=== PATIENT | female | born 1965 | race Caucasian/White ===

== ENCOUNTER 2021-12-14 13:10 | Emergency (ER) | payer BC, SELFPAY ==
[2021-12-14 13:15] VITALS: BP 147/85; PULSE 84; RESP 16; TEMP 36.8; O2SAT 99; BMI 37.4
--- NOTE | 2021-12-14 14:50 | CRLHL7_ITS ---
For Patients: As a result of the Cures Act, medical imaging exams and procedure reports are released immediately into your electronic medical record. You may view this report before your referring provider. If you have questions, please contact your health care provider. Indication: Shoulder injury. Technique: Left shoulder 3 views. Comparison: None. Findings: Bones: Alignment is normal. No fractures or bone lesions. Joint spaces: Unremarkable. Soft tissues: Unremarkable. Impression: No sign of acute injury. Dictated by Elvin Fountain MD @ 12/14/2021 4:11:20 PM (Electronically Signed)
--- NOTE | 2021-12-14 14:51 | CRLHL7_ITS ---
For Patients: As a result of the Cures Act, medical imaging exams and procedure reports are released immediately into your electronic medical record. You may view this report before your referring provider. If you have questions, please contact your health care provider. Indication: Injury. Technique: Right thumb 3 views. Comparison: None. Findings: Bones: Alignment is normal. No fractures or bone lesions. Joint spaces: Mild arthritic changes. Soft tissues: Unremarkable. Impression: No sign of acute injury. Dictated by Elvin Fountain MD @ 12/14/2021 4:12:54 PM (Electronically Signed)
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
[2021-12-14 15:18] VITALS: BP 137/82; PULSE 77; RESP 20
--- OUTSIDE RECORDS SUMMARY | 2021-12-18 13:16 | XMS_ITS | Clinical Summary ---
:1965 Author Organization [facility] Address [address] [place] [address] Care Team Providers Name Role Phone Unavailable Primary Care Provider Unavailable Source Comments Patient records contain information from all sites at [facility]. For routine questions regarding patient records, call [phone] during business hours, M-F 8:00 AM - 5:00 PM Central Time. Record requests for emergency care only can be directed to [phone] at any time.[facility] Allergies Active Allergy Reactions Severity Noted Date Comments Hydrocodone-Acetaminophen Hives, Itching 08/28/2014 Medications Medication Sig Dispensed Refills Start Date End Date Status hydroCHLOROthiazide 0 08/29/2017 Active (HYDRODIURIL) 25 mg tablet EPINEPHrine 0.1 mg/0.1 mL by Injection 0 Active auto-injector route. acetaminophen (TYLENOL) Take 500 mg by 0 Active 500 mg capsule mouth. ibuprofen (ADVIL,MOTRIN) Take 200 mg by 0 Active 200 mg tablet mouth. losartan (COZAAR) 25 mg Take 25 mg by 0 Active tablet mouth daily. hydroCHLOROthiazide Take 12.5 mg by 0 06/10/2021 Active (HYDRODIURIL) 12.5 mg mouth daily. tablet Encounters Date Type Specialty Care Team Description 10/21/2021 Procedure visit Dermatology Amarilys Romero M.D. Nev us Atypical from Last 3 Months Family History Medical History Relation Name Comments Squamous cell carcinoma Maternal Grandmother Relation Name Status Comments Maternal Grandmother Social History Tobacco Use Types Packs/Day Years Used Date Smoking Tobacco: Former Smokeless Tobacco: Never Alcohol Habits Answer Date Recorded How often do you have a drink containing alcohol? 2-4 times a month 05/30/2021 How many drinks containing alcohol do you have on a 1 or 2 05/30/2021 typical day when you are drinking? How often do you have six or more drinks on one Less than mo nthly 05/30/2021 occasion? Social Isolation Answer Date Recorded In a typical week, how many times do you More than three anika es a week 05/30/2021 talk on the phone with family, friends, or neighbors? How often do you get together with friends Twice a week 05/30/2021 or relatives? How often do you attend yazidism or More than 4 times per year 05/30/2021 christian services? Do you belong to any clubs or Yes 05/30/2021 organizations such as yazidism groups, unions, fraternal or athletic groups, or school groups? How often do you attend meetings of the More than 4 times pe r year 05/30/2021 clubs or organizations you belong to? Are you now , , , 05/30/2021 , never or living with a partner? Physical Activity Answer Date Recorded On average, how many days per week do you engage in moderate to 6 days 05/30/2021 strenuous exercise (like walking fast, running, jogging, dancing, swimming, biking, or other activities that cause a light or heavy sweat)? On average, how many minutes do you engage in exercise at th is 60 min 05/30/2021 level? Stress Answer Date Recorded Do you feel stress - tense, restless, nervous, or anxious, N ot at all 05/30/2021 or unable to sleep at night because your mind is troubled all the time - these days? Financial Resource Strain Answer Date Recorded How hard is it for you to pay for the very basics like Not h yudelka at all 05/30/2021 food, housing, medical care, and heating? Intimate Partner Violence Answer Date Recorded Within the last year, have you been afraid of your partner o r No 05/30/2021 ex-partner? Within the last year, have you been humiliated or emotionall y No 05/30/2021 abused in other ways by your partner or ex-partner? Within the last year, have you been kicked, hit, slapped, or No 05/30/2021 otherwise physically hurt by your partner or ex-partner? Within the last year, have you been raped or forced to have any No 05/30/2021 kind of sexual activity by your partner or ex-partner? Food Insecurity Answer Date Recorded Within the past 12 months, you worried that your food would Never true 05/30/2021 run out before you got money to buy more. Within the past 12 months, the food you bought just didn't N ever true 05/30/2021 last and you didn't have money to get more. Transportation Needs Answer Date Recorded In the past 12 months, has lack of transportation kept you f rom No 05/30/2021 medical appointments or from getting medications? In the past 12 months, has lack of transportation kept you f rom No 05/30/2021 meetings, work, or getting things needed for daily living? Housing Stability Answer Date Recorded In the last 12 months, was there a time when you were not ab le No 05/30/2021 to pay the mortgage or rent on time? In the last 12 months, how many places have you lived? 1 05/30/2021 In the last 12 months, was there a time when you did not hav e a No 05/30/[address] or slept in a correction (including now)? Education Answer Date Recorded What is the highest level of school you have Some college, n o degree 03/14/2019 completed or the highest degree you have received? Sex Assigned at Date Recorded Female 05/30/2021 11:58 AM CDT Last Filed Vital Signs Vital Sign Reading Time Taken Comments Blood Pressure 148/97 10/21/2021 1:57 PM CDT Pulse 77 10/21/2021 1:57 PM CDT Temperature - - Respiratory Rate - - Oxygen Saturation - - Inhaled Oxygen Concentration - - Weight - - Height - - Body Mass Index - - Plan of Treatment Health Maintenance Due Date Last Done Comments CT Colonography 1965 Cologuard 1965 Colonoscopy 1965 Colorectal Cancer Screening 1965 Creatinine Level 1965 FIT 1965 Fasting Glucose for 1965 Diabetes Screening HIV Screening 1965 Hepatitis B Vaccines (1 of 1965 3 - 3-dose series) Hepatitis C Screening 1965 Lipid (Cholesterol) 1965 Screening Mammogram 1965 Potassium Level 1965 Sodium Level 1965 Cervical Cancer Screening 06/06/2020 06/06/2017 Depression Screening 03/05/2021 (Annual PHQ-2) COVID-19 Vaccine (4 - 11/20/2021 09/25/2021, 01/03/2021, Booster for Lenka series) 05/19/2020 Influenza Vaccine (#1) 2021 01/17/2021, 12/28/2019, 12/04/2019, Additional history exists DTaP,Tdap,and Td Vaccines 03/29/2024 03/29/2014, 03/24/2014 , (3 - Td or Tdap) 11/08/2002 Zoster Vaccines Completed 06/22/2021, 03/17/2020 Pneumococcal vaccine (0-64 Aged Out No lo nger eligible years) based on patient 's age to complete this topic Procedures Procedure Name Priority Date/Time Associated Diagnosis Comme nts DERMATOPATHOLOGY Routine 10/21/2021 2:22 PM Nevus Atypical Res ults for this CDT procedure are i n the results section. from Last 3 Months Results Dermatopathology (10/21/2021 2:22 PM CDT) Component Value Ref Test Analysis Performed Pathologis t Range Method Time At Signature 10/26/2021 [facility] 5:19 PM CDT Report Eloy MarreroMeghan 10/26/2021 [facility] electronically Yumiko Cota 5:19 PM signed by CDT Gross Description Received in formalin labeled with the patient's n darian, 10/26/2021 [facility] medical identification number, and skin excision left 5:19 PM upper paraspinal back is a 4.5 x 1.5 cm unoriented CDT pink-lisa skin ellipse excised to a depth of 0.9 cm with an eccentrically located 1.0 x 0.6 cm scar, 0.1 cm from the resection margin (inked black). Manufacturing Engineering Technologist sections are submitted in 3 cassettes labeled A1-A3 as follows: A1: Tips A2-A3: Scar, entirely Grossed by Liudmila FRIED(ASCP) Interpretation FINAL DIAGNOSIS 10/26/2021 [facility]. ??Left upper paraspinal back, Skin excision: ??Re-excisio n 5:19 PM of junctional nevus with severe atypia [id number], CDT specimen collection date 07/26/2021), no residual atypical nevus identified in sections examined; previous biopsy site changes noted Specimen (Source) Anatomical Collection Method Collection Time Re ceived Time Location / / Volume Laterality Skin (Left upper 10/21/2021 2:22 paraspinal back) PM CDT Narrative This result has an attachment that is no t available. Estelita Szymanski M.D. LAB PATH DERM ORDERABLES Performing Organization Address City/State/ZIP Code Phon e Number [facility] - [address] [place], [place] [address] [facility] [place] [address] [facility] [address] from Last 3 Months Insurance Payer Benefit Plan Subscriber ID Effective Dates Phone Address Type / Group [facility] [id number] 2019-Christine [phone] [address] [address] [facility] [address] [place] [address] [phone] Reji dew[address] (Home) [place] Freed [id number]
--- OUTSIDE RECORDS SUMMARY | 2021-12-18 13:16 | XMS_ITS | Encounter Summary ---
:1965 Author Organization [facility] Address [address] [place] [address] Care Team Providers Name Role Phone Unavailable Primary Care Provider Unavailable Encounter Details Date Type Department Care Team Description 01/20/2019 Ancillary Procedure Department of Dermatology Social History Tobacco Use Types Packs/Day Years [...] or relatives? How often do you attend restorationist or More than 4 times per year 05/30/2021 adventist services? Do you belong to any clubs or Yes 05/30/2021 organizations such as restorationist groups, unions, fraternal or athletic groups, or [...] minutes do you engage in exercise at is 60 min 05/30/2021 level? Stress Answer [...] place to sleep or slept in a half-way (including now)? Sex Assigned at Date Recorded Female 05/30/2021 11:58 AM CDT documented as of this encounter Plan of Treatment Not on filedocumented as of this encounter Procedures Procedure Name Priority Date/Time Associated Comments Diagnosis DERMATOLOGY IMAGE Routine 01/20/2019 9:19 AM Resu lts for this EXAM FUEL OPERATOR procedure are i n the results section. documented in this encounter Results upper extremity, left anterior forearm 305-Dermatology Image Exam (01/20/2019 9:19 AM FUEL OPERATOR) Specimen (Source) Anatomical Collection Method Collection Time Re ceived Time Location / / Volume Laterality 01/20/2019 9:17 AM FUEL OPERATOR Narrative [facility] - 01/20/2019 9:19 AM FUEL OPERATOR This order has been created and auto-finalized to support the import of images acquired without order. The clini david documentation to support these images can be found on the encounter alba t produced images. Provider Not In System IMG NON RAD IMAGING PROCEDUR ES Performing Organization Address City/State/ZIP Code Phon e Number [facility] NA documented in this encounter Visit Diagnoses Not on filedocumented in this encounter
--- OUTSIDE RECORDS SUMMARY | 2021-12-18 13:16 | XMS_ITS | Encounter Summary ---
:1965 Author Organization [facility] Address [address] [place] [address] Care Team Providers Name Role Phone Unavailable Primary Care Provider Unavailable Encounter Details Date Type Department Care Team Description 06/06/2021 Ancillary Procedure Department of Dermatology Social History [...] or relatives? How often do you attend amish or More than 4 times per year 05/30/2021 restoration services? Do you belong to any clubs or Yes 05/30/2021 organizations such as amish groups, unions, fraternal or athletic groups, or [...] place to sleep or slept in a residential (including now)? Education Answer Date Recorded What [...] Date/Time Associated Comments Diagnosis DERMATOLOGY IMAGE Routine 06/06/2021 4:42 PM Resu lts for this EXAM CDT procedure are i n the results section. documented in this encounter Results Back 527-Dermatology Image Exam (06/06/2021 4:42 PM CDT) Specimen (Source) Anatomical Collection Method Collection Time Re ceived Time Location / / Volume Laterality 06/06/2021 4:41 PM CDT Narrative [facility] - 06/06/2021 4:42 PM CDT This order has been created and auto-finalized [...]
--- OUTSIDE RECORDS SUMMARY | 2021-12-18 13:16 | XMS_ITS | Encounter Summary ---
:1965 Author Organization [facility] Address [address] [place] [address] Care Team Providers Name Role Phone Unavailable Primary Care Provider Unavailable Reason for Referral Outpatient (Routine) - Closed Specialty Diagnoses / Procedures Referred By Contact Refer red To Contact Dermatology Diagnoses Tumor Skin Uncertain Behavior Estelita Szymanski M.D. [facility] Procedures Dermatology misc minor procedure [address] [place] [phone] Referral ID Status Reason Start Date Expiration Date Visits Requ ested Visits Authorized [id number] Closed 09/01/2019 08/31/2020 1 1 Reason for Visit Reason Comments Follow-up 2 months Outpatient (Routine) - Closed Specialty Diagnoses / Procedures Referred By Contact Refer red To Contact Dermatology Estelita Szymanski M.D . [facility] [address] [place] [phone] Referral ID Status Reason Start Date Expiration Date Visits Requ ested Visits Authorized [id number] Closed 03/18/2019 03/17/2020 1 1 Encounter Details Date Type Department Care Team Description 09/01/2019 Office Visit Department of Estelita Szymanski, Tumor Skin Uncertain Dermatology in [facility] (Primary Dx) [place], [place] [address] [phone] Social History Tobacco Use Types Packs/Day Years [...] or relatives? How often do you attend christian or More than 4 times per year 05/30/2021 episcopal services? Do you belong to any clubs or Yes 05/30/2021 organizations such as christian groups, unions, fraternal or athletic groups, or [...] place to sleep or slept in a long-term (including now)? Education Answer Date Recorded What is the highest level of school you have Some college, n o degree 03/14/2019 completed or the highest degree you have received? Sex Assigned at Date Recorded Female 05/30/2021 11:58 AM CDT documented as of this encounter Progress Notes Estelita Szymanski M.D. 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 In addition, she was diagnosed with tinea versicolor predominantly involving her back area and this was treated with ketoconazole cream twice daily with resolution. 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 She feels that this has resolved. In addition, she developed a new lesion involving the right distal reece several weeks ago and was treated with a topical antibiotic Neosporin that has not resulted in any resolution. MEDICAL HISTORY 1. 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 Back: History of tinea versicolor, resolved OBJECTIVE PHYSICAL EXAMINATION General: Awake, alert, in no acute distress, and with appropriate affect. Skin: Examination of the central sternum reveals a scar with no evidence for recurrence of her previous SCC in situ. Examination of her back chest arms reveals no evidence for her tinea versicolor which has resolved. Examination of her left antecubital fossa reveals no evidence for GA which has since resolved. Examination of her right distal reece reveals a 1 cm x 1 cm slightly raised violaceous plaque with central crust and adjacent erythema compatible with irritation likely from the Neosporin. No evidence for infection. ASSESSMENT / PLAN #1 Upper central sternum: History of SCC in situ status post curettage and cryotherapy in March 2019 No evidence for recurrence. Follow up immediately if any evidence for recurrence. Otherwise follow up in 6 months for skin cancer screening exam. #2 Back: History of tinea versicolor, resolved Previous rash has resolved with the treatment of the ketoconazole cream. No further treatment neededat this time. If it reoccurs, she can restart the ketoconazole cream twice daily for 3-4 weeks and if not improving follow-up in clinic. #3 Left antecubital fossa: Granuloma annulare, resolved Her GA has resolved. Follow up as needed. #4 Right distal reece: Rule out SCC The lesion involving her right distal reece is suspicious for squamous cell carcinoma. There is adjacent erythema around it that is likely irritation and allergic contact dermatitis from the Neosporin which I have asked her to discontinue. It does not look infected and there is no discharge. Photograph taken today and I have asked her to apply Vaseline twice daily and stop Neosporin. Follow-up in the next few weeks for shave biopsy. PATIENT EDUCATION: Ready to learn. No apparent learning barriers were identified. Learning preferences include listening. Explained diagnosis and treatment plan; patient/guardian of patient expressed understanding of thecontent. documented in this encounter Plan of Treatment Scheduled Orders Name Type Priority Associated Diagnoses Order S chedule Dermatology misc minor Dermatology Routine Tumor Skin Uncerta in Expected: procedure Behavior 09/09/2019 (Approximate), Expires: 2022 documented as of this encounter Visit Diagnoses Diagnosis Tumor Skin Uncertain Behavior - Primary documented in this encounter
--- OUTSIDE RECORDS SUMMARY | 2021-12-18 13:16 | XMS_ITS | Encounter Summary ---
:1965 Author Organization [facility] Address [address] [place] [address] Care Team Providers Name Role Phone Unavailable Primary Care Provider Unavailable Encounter Details Date Type Department Care Team Description 02/17/2019 Procedure visit Department of Estelita Szymanski M.D. [address] [place] [address] Tumor Skin Uncertain Dermatology in [place] BowmanMargaret, LMeghanPMeghanN. Behavior ([place], [place]) [address] [address] Social History Tobacco Use Types Packs/Day Years [...] or relatives? How often do you attend druze or More than 4 times per year 05/30/2021 latter day services? Do you belong to any clubs or Yes 05/30/2021 organizations such as druze groups, unions, fraternal or athletic groups, or [...] place to sleep or slept in a group home (including now)? Sex Assigned at Date Recorded Female 05/30/2021 11:58 AM CDT documented as of this encounter Procedure Notes Margaret Bowman L.P.N. - 02/17/2019 8:30 AM CSTAssociated Order(s): Suture Removal Post-Procedure Diagnose(s): Tumor Skin Uncertain Behavior Suture Removal Date/Time: 02/17/2019 8:28 AM Performed by: Margaret Bowman L.P.N. Authorized by: Estelita Szymanski M.D. PROCEDURE DETAILS Wound appearance: No signs of infection Number of sutures removed: 4 PRE PROCEDURE DETAILS Sutures were placed at [place] facility: yes Indicaton: scheduled suture removal Location: Upper extremity and trunk Upper extremity location: Arm Arm location: Left lower arm Trunk location: Back SEDATION / ANESTHESIA Anesthesia method: none POST PROCEDURE DETAILS Procedure completed successfully: yes Complications: no immediate complications GER TALENT ACQUISITION documented in this encounter Plan of Treatment Not on filedocumented as of this encounter Procedures Procedure Name Priority Date/Time Associated Diagnosis Comme nts SUTURE REMOVAL Routine 02/17/2019 8:30 AM Tumor Skin Uncertain Results for this MANAGER TALENT ACQUISITION Behavior procedure are i n the results section . documented in this encounter Results SUTURE REMOVAL (02/17/2019 8:30 AM MANAGER TALENT ACQUISITION) Narrative [facility] - 02/17/2019 8:30 AM MANAGER TALENT ACQUISITION Margaret Bowman L.P.N. ? 02/17/2019 ??8:30 AM Suture Removal Date/Time: 02/17/2019 8:28 AM Performed by: Margaret Bowman L.PMeghanN Meghan Authorized by: Estelita Szymanski M.D. PROCEDURE DETAILS Wound appearance: ??No signs of infectio n Number of sutures removed: ??4 PRE PROCEDURE DETAILS Sutures were placed at [facility]: ye s ?? Indicaton: scheduled suture removal ?? Location: ??Upper extremity and trunk Upper extremity location: ??Arm Arm location: ??Left lower arm Trunk location: ??Back SEDATION / ANESTHESIA Anesthesia method: none POST PROCEDURE DETAILS Procedure completed successfully: yes ?? Complications: no immediate complication s ?? Estelita Szymanski M.D. PROCEDURE/MINOR SURGICAL ORD ERABLES Performing Organization Address City/State/ZIP Code Phon e Number MMODAL MMODAL NA documented in this encounter Visit Diagnoses Diagnosis Tumor Skin Uncertain Behavior - Primary documented in this encounter
--- OUTSIDE RECORDS SUMMARY | 2021-12-18 13:16 | XMS_ITS | Encounter Summary ---
:1965 Author Organization [facility] Address [address] [place] [address] Care Team Providers Name Role Phone Unavailable Primary Care Provider Unavailable Reason for Referral Outpatient (Routine) - Closed Specialty Diagnoses / Procedures Referred By Contact Refer red To Contact Dermatology Diagnoses Nevalfonzo Multiple Estelita Szymanski M.D. [facility] Procedures Dermatology misc minor procedure [address] [place] [address] Referral ID Status Reason Start Date Expiration Date Visits Requ ested Visits Authorized [id number] Closed 06/06/2021 06/06/2022 1 1 Reason for Visit Reason Comments Skin Check Encounter Details Date Type Department Care Team Description 06/06/2021 Office Visit Department of Estelita Szymanski Nevi Multi ple (Primary Dx); Dermatology in [place], [place] [address] [phone] [phone] Social History Tobacco Use Types Packs/Day Years [...] or relatives? How often do you attend taoism or More than 4 times per year 05/30/2021 pentecostal services? Do you belong to any clubs or Yes 05/30/2021 organizations such as taoism groups, unions, fraternal or athletic groups, or [...] place to sleep or slept in a care home (including now)? Education Answer Date Recorded What is the highest level of school you have Some college, n o degree 03/14/2019 completed or the highest degree you have received? Sex Assigned at Date Recorded Female 05/30/2021 11:58 AM CDT documented as of this encounter Progress Notes Estelita Szymanski M.D. - 06/06/2021 4:00 PM CDT SUBJECTIVE CHIEF COMPLAINT / REASON FOR VISIT Full skin cancer screening HISTORY OF PRESENT ILLNESS Caitlyn Wharton is a pleasant 56 y.o. female who presents for a full skin cancer screening. The patient was last seen by me in Dermatology clinic on 10/07/19. 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 Shedenies a personal or family history for melanoma. She uses sunscreen. She denies any new or changinglesions today. MEDICAL HISTORY 1. Central sternum: History of squamous cell carcinoma in situ, status post curettage and cryotherapy in March 2019 2. Negative for melanoma FAMILY HISTORY Negative for melanoma OBJECTIVE PHYSICAL EXAMINATION General: Awake, alert, in no acute distress, and with appropriate affect. Eyes: No scleral injection or icterus. No eyelid abnormalities. Lymph: No lower extremity edema. Skin: I have examined the scalp, face, neck, chest, abdomen, back, bilateral upper extremities, and bilateral lower extremities. My nurse (Gus) served as a bi tri operator for the entirety of the exam. Examination of the central sternum reveals no evidence for recurrence of squamous cell carcinoma in situ. Examination of the face, trunk and extremities reveals multiple benign-appearing nevi, lentigines and seborrheic keratoses. Examination of the right upper lateral biceps reveal an area of focal telangiectasia and blanchable erythema with no associated lesion. Examination of the left antecubital fossa reveals a patch of granuloma annulare that is blanchable. Examination of the left upper central spine revels a 5 x 2.5 mm brown nevus with sightly darker center. Examination today reveals no suspicious lesions for skin cancer. ASSESSMENT / PLAN #1 Left antecubital fossa: Granuloma annulare The benign nature of the skin lesion(s) was discussed with the patient. No treatment is required. I discussed with the patient that we could use topical steroid creams to treat the granuloma annulare from a cosmetic perspective if she wants as it is asymptomatic. As the lesion does not itch or bother her, she prefers to defer any treatment at this time. I recommend continued observation. Should this lesion change in size, color, texture, or shape or develop symptoms such as itching or bleeding, I recommend an immediate return visit for reassessment. #2 Left upper central spine: Rule out atypical nevus I discussed with the patient that given some characteristics of this lesion, I would prefer to remove it. I recommend a 6 or 8-mm punch biopsy of the nevus involving the left upper central spine. I discussed with the patient that she will have several stitches and should avoid strenuous exercise for 1-2 weeks following the procedure. She is in agreement with this plan. Photographs taken today with patient consent. Follow up in near future for removal of the stated lesion. #3 Face, trunk and extremities: Multiple nevi and lentigines The ABCDE criteria for melanoma was reviewed with the patient. None of the patient's other nevi reach the clinical threshold for biopsy. I recommend continued sun protection, self-skin examinations, and observation. Should any of the patient's nevi change in size, color, texture, or shape or develop symptoms such as itching or bleeding, I recommend an immediate return visit for reassessment. #4 Face, trunk and extremities: Seborrheic keratosis The benign nature of the skin lesion(s) was discussed with the patient. No treatment is required. I recommend continued observation. Should this lesion change in size, color, texture, or shape or develop symptoms such as itching or bleeding, I recommend an immediate return visit for reassessment. #5 Central sternum: History of squamous cell carcinoma in situ, status post curettage and cryotherapy in March 2019, no recurrence No clinical evidence of local recurrence today. Recommended monthly self-skin examinations to evaluate for new, changing, symptomatic, or otherwise worrisome lesions. Signs and symptoms of skin cancer discussed. Photoprotection was recommended. Return to Dermatology in 12 months for a full skin exam or immediately if any new or changing lesions are noted. PATIENT EDUCATION: Ready to learn. No apparent learning barriers were identified. Learning preferences include listening. Explained diagnosis and treatment plan; patient/guardian of patient expressed understanding of thecontent. By signing my name below, I, Ayanna Rodriguez, attest that this documentation has been prepared under the direction and in the presence of Estelita Szymanski M.D. Electronically Signed: marla Sharp. 06/06/2021. 4:20 PM CDT. IEstelita M.D., personally performed the services described in this documentation. All medical record entries made by the scribe were at my direction and in my presence. I have reviewed the chart and discharge instructions (if applicable) and agree that the record reflects my personal performance and is accurate and complete. Estelita Szymanski M.D. documented in this encounter Plan of Treatment Scheduled Orders Name Type Priority Associated Diagnoses Order S chedule Dermatology misc minor Dermatology Routine Nevi Multiple Expe cted: procedure 07/26/2021, Exp ires: 09/05/2022 documented as of this encounter Visit Diagnoses Diagnosis Nevi Multiple - Primary Granuloma Annulare documented in this encounter
--- OUTSIDE RECORDS SUMMARY | 2021-12-18 13:16 | XMS_ITS | Encounter Summary ---
:1965 Author Organization [facility] Address [address] [place] [address] Care Team Providers Name Role Phone Unavailable Primary Care Provider Unavailable Encounter Details Date Type Department Care Team Description 02/20/2019 Clinical Communication Department of Estelita Szyamnski, Dermatology in [place]. [place], [place] [address] [facility] [address] [place] [phone] Social History Tobacco Use Types Packs/Day Years [...] or relatives? How often do you attend pentecostal or More than 4 times per year 05/30/2021 methodist services? Do you belong to any clubs or Yes 05/30/2021 organizations such as pentecostal groups, unions, fraternal or athletic groups, or [...] place to sleep or slept in a skilled nursing (including now)? Sex Assigned at Date Recorded Female 05/30/2021 11:58 AM CDT documented as of this encounter Miscellaneous Notes Telephone Encounter - Estelita Szymanski M.D. - 02/20/2019 3:58 PM CST I called Mrs. Wharton and informed her that the skin biopsy taken from her upper central sternum showed a squamous cell carcinoma in situ with negative margins. I discussed with her that the biopsy removed the superficial squamous cell cancer but that we will likely do a little more treatment for the margins with curettage and cryotherapy when she returns for her scheduled appointment in March. I also discussed with her that the skin biopsy taken from the rash involving her back showed tinea versicolor as expected, and I have prescribed ketoconazole cream as it is a limited area to be applied twice daily to the rash for the next 3-4 weeks, and we will re-evaluate in March when she returns for her followup appointment. Finally, this third biopsy taken from the left upper arm did show granuloma annulare (again as expected), and she states that this is stable, and she would prefer to try some essential oil which she has been doing at home on her own with no irritation and may be helping a little bit. I told her as long as there is no irritation we will re-evaluate when she returns as these cansometimes go away on their own or be treated with a topical steroid as well. She was very appreciative of the phone call. All questions answered. Estelita Szymanski M.D. CT CT Job ID: [id number] GING MANAGER documented in this encounter Plan of Treatment Not on filedocumented as of this encounter Visit Diagnoses Not on filedocumented in this encounter
--- OUTSIDE RECORDS SUMMARY | 2021-12-18 13:16 | XMS_ITS | Encounter Summary ---
:1965 Author Organization [facility] Address [address] [place] [address] Care Team Providers Name Role Phone Unavailable Primary Care Provider Unavailable Encounter Details Date Type Department Care Team Description 10/07/2019 Ancillary Procedure Department of Dermatology Social History [...] or relatives? How often do you attend hindu or More than 4 times per year 05/30/2021 mormonism services? Do you belong to any clubs or Yes 05/30/2021 organizations such as hindu groups, unions, fraternal or athletic groups, or [...] place to sleep or slept in a fpc (including now)? Education Answer Date Recorded What [...] Date/Time Associated Comments Diagnosis DERMATOLOGY IMAGE Routine 10/07/2019 9:04 AM Resu lts for this EXAM CDT procedure are i n the results section. documented in this encounter Results lower extremity, right anterior reece 406-Dermatology Image Exam (10/07/2019 9:04 AM CDT) Specimen (Source) Anatomical Collection Method Collection Time Re ceived Time Location / / Volume Laterality 10/07/2019 9:01 AM CDT Narrative [facility] - 10/07/2019 9:04 AM CDT This order has been created and [...]
--- OUTSIDE RECORDS SUMMARY | 2021-12-18 13:16 | XMS_ITS | Encounter Summary ---
:1965 Author Organization [facility] Address [address] [place] [address] Care Team Providers Name Role Phone Unavailable Primary Care Provider Unavailable Encounter Details Date Type Department Care Team Description 02/20/2019 Orders Only Department of Dermatology in Estelita Parikh M.D. [facility] [address] [facility] [address] [place], [place] [phone] (Wo rk) Social History Tobacco Use Types Packs/Day Years [...] or relatives? How often do you attend episcopal or More than 4 times per year 05/30/2021 buddhism services? Do you belong to any clubs or Yes 05/30/2021 organizations such as episcopal groups, unions, fraternal or athletic groups, or [...] place to sleep or slept in a detention (including now)? Sex Assigned at Date Recorded Female 05/30/2021 11:58 AM CDT documented as of this encounter Plan of Treatment Not on filedocumented as of this encounter Visit Diagnoses Not on filedocumented in this encounter
--- OUTSIDE RECORDS SUMMARY | 2021-12-18 13:16 | XMS_ITS | Encounter Summary ---
:1965 Author Organization [facility] Address [address] [place] [id number] Care Team Providers Name Role Phone Unavailable Primary Care Provider Unavailable Reason for Visit Outpatient (Routine) - Closed Specialty Diagnoses / Procedures Referred By Contact Refer red To Contact Diagnoses Nevus Atypical Estelita Szymanski M.D. [facility] Procedures GABRIELE Excision 1-[address] sites [address] [place] [address] [phone] Referral ID Status Reason Start Date Expiration Date Visits Requ ested Visits Authorized [id number] Closed 08/05/2021 08/05/2022 1 1 Encounter Details Date Type Department Care Team Description 10/21/2021 Procedure visit Department of Dermatology Bonnie Romero, Nevus Atypical in [facility] stephanie Calderon [address] [facility] [address] [place] [address] [place], [place] [phone] Social History Tobacco Use Types Packs/Day Years [...] or relatives? How often do you attend restorationism or More than 4 times per year 05/30/2021 rastafarian services? Do you belong to any clubs or Yes 05/30/2021 organizations such as restorationism groups, unions, fraternal or athletic groups, or [...] place to sleep or slept in a snf (including now)? Education Answer Date Recorded What is the highest level of school you have Some college, n o degree 03/14/2019 completed or the highest degree you have received? Sex Assigned at Date Recorded Female 05/30/2021 11:58 AM CDT documented as of this encounter Last Filed Vital Signs Vital Sign Reading Time Taken Comments Blood Pressure 148/97 10/21/2021 1:57 PM CDT Pulse 77 10/21/2021 1:57 PM CDT Temperature - - Respiratory Rate - - Oxygen Saturation - - Inhaled Oxygen Concentration - - Weight - - Height - - Body Mass Index - - documented in this encounter Procedure Notes Dilan Escobar M.D. - 10/21/2021 2:00 PM CDT PREOP INDICATION: REMOVAL. Date of Surgery: 10/21/2021 Surgeon: Dr. Justino Chatterjee M.D. Stencil Machine Operator: Dr. Amarilys Romero M.D. Stencil Machine Operator: Dr. Royce Escobar M.D. Location: [facility] Floor:16 Room:[facility] Visit Type: Outpatient PostOp Diagnosis: severely atypical nevus Anatomic Location: left upper paraspinal back Preoperative size: 0.6 x 0.9 cm with circumferential margins of 5 mm for a total excision diameter of 1.6 x 1.9 cm. Procedure: Excision with intermediate layered closure Procedural pause conducted to verify: correct patient identity, procedure to be performed and as applicable, correct side and site, correct patient position, and availability of implants, special equipment or special requirements. INFORMED CONSENT Discussed the risks, benefits, alternatives, and the necessity of other members of the healthcare team participating in the procedure. All questions answered and consent given. PATIENT EDUCATION Ready to learn, no apparent learning barriers were identified; learning preferences include listening. Explained diagnosis and treatment plan; patient expressed understanding of the content. Preoperative medications: none Anesthesia used was 1% lidocaine with 1:200,000 epinephrine. The skin was prepped in a sterile fashion with hibiclens. The lesion was excised with 5-mm clinically tumor-free margins in a fusiform fashion through the skin and through the subcutaneous tissue. Hemostasis was obtained with electrocoagulation. Due to wound size, the wound edges were closed in a intermediate layered fashion. The final defect had a maximum width measured perpendicular to the closure line, as listed in the final defect size above. Hemostasis was obtained with electrocoagulation. The wound edges were closed in a layered fashionwith 3- 0 PDS and 4-0 monocryl subcutaneous- dermal sutures and 4-0 nylon running and/or interrupted skin sutures. Postoperative length: 6.0 cm. Estimated blood loss: Minimal. Complications: None. Woundcare: Routine. Postoperative medications: none Royce Escobar M.D. documented in this encounter Consult Notes Dilan Escobar M.D. - 10/21/2021 2:00 PM CDT SUBJECTIVE REFERRAL SOURCE Estelita Szymanski M.D. CHIEF COMPLAINT/REASON FOR VISIT Severely atypical nevus on the left upper paraspinal back Staff surgeon: Justino Chatterjee M.D. HISTORY OF THE PRESENT ILLNESS Caitlyn Wharton is a 56 y.o. female presents today for excision of a severely atypical nevus on the left upper paraspinal back. The dermatologic surgery preoperative sheet was reviewed with pertinent positives as below: PERTINENT DERMATOLOGIC REVIEW OF SYSTEMS ROS QUESTION YES NO Someone else make decisions for you? [] [x] Prior skin cancer [] [x] Prior melanoma [] [x] aspirin [] [x] Bleeding or healing problems [] [x] Cancers (Breast) [x] [] Defibrillator [] [x] Dementia [] [x] Diabetes [] [x] Eliquis [] [x] Heart disease [] [x] Heart valve [] [x] Infectious diseases (HIV/hep) [] [x] Joint replacements [] [x] Other implants [] [x] Lung disease or conditions [] [x] murmur [] [x] Organ transplant & type [] [x] Other blood thinners [] [x] pacemaker [] [x] Plavix [] [x] stroke [] [x] seizure [] [x] tobacco [] [x] Warfarin (Coumadin) [] [x] CURRENT MEDICATIONS The medications for today's visit were reviewed OBJECTIVE VITALS SIGNS BP (!) 148/97 Pulse 77 PHYSICAL EXAMINATION General: well appearing female in no acute distress Skin: Focused skin examination was performed today of the surgical site(s) revealing erythematous scar, consistent with prior biopsy site(s), on the left upper paraspinal back. DIAGNOSTICS REVIEW OF MEDICAL CHART: A review of the patient's medical chart and any referral form(s) was performed. I personally reviewed the patient's histopathology from the biopsy slides, and my impression is listed below in the assessment and plan. ASSESSMENT / PLAN #1 Excision of severely atypical nevus on the left upper paraspinal back The patient presents to procedure clinic today for the above lesion. We discussed risks and benefitsof the procedure including bleeding, infection, scar, dysesthesia. We also discussed recommended activity limitations. Patient wished to proceed. 5mm margins were used. The patient tolerated the procedure well. Please see the operative note for further detail. The patient's referring provider will be sent pathology results for further communication with the patient. PROCEDURAL PAUSE: Procedural pause conducted to verify: correct patient identity, procedure to be performed, and as applicable, correct side and site, correct patient position, and availability of implants, special equipment, or special requirements. PATIENT EDUCATION Ready to learn. No apparent learning barriers were identified. Learning preferences include listening. Explained diagnosis and treatment plan; patient/guardian of patient expressed understanding of thecontent. INFORMED CONSENT Discussed the risks, benefits, alternatives, and the necessity of other members of the healthcare team participating in the procedure. All questions answered and consent given. Royce Escobar M.D. Associated attestation - Justino Chatterjee M.D. - 10/24/2021 11:00 AM CDT I was present during all critical and fallon portions of the procedure(s) and immediately available to furnish services the entire duration. See resident/fellow note for details. documented in this encounter Miscellaneous Notes Result Encounter Note - Estelita Szymanski M.D. - 10/26/2021 5:40 PM CDT Left upper paraspinal back: Re-excision of severely atypical nevus already done letter Please send letter documented in this encounter Plan of Treatment Not on filedocumented as of this encounter Procedures Procedure Name Priority Date/Time Associated Diagnosis Comme nts DERMATOPATHOLOGY Routine 10/21/2021 2:22 PM Nevus Atypical Res ults for this CDT procedure are i n the results section. documented in this encounter Results Dermatopathology (10/21/2021 2:22 PM CDT) Component Value Ref Test Analysis Performed Pathologis t Range Method Time At Signature 10/26/2021 [facility] 5:19 PM CDT Report Eloy Lovelace 10/26/2021 [facility] electronically Yumiko Cota 5:19 PM signed by CDT Gross Description Received in formalin labeled with the patient's samuel farmer, 10/26/2021 [facility] medical identification number, and skin excision left 5:19 PM upper paraspinal back is a 4.5 x 1.5 cm unoriented CDT pink-lisa skin ellipse excised to a depth of 0.9 cm with an eccentrically located 1.0 x 0.6 cm scar, 0.1 cm from the resection margin (inked black). Soil Scientist sections are submitted in 3 cassettes labeled A1-A3 as follows: A1: Tips A2-A3: Scar, entirely Grossed by Liudmila FRIED(ASCP) Interpretation FINAL DIAGNOSIS 10/26/2021 PDRM A. ??Left upper paraspinal back, Skin excision: ??Re-excisio n 5:19 PM of junctional nevus with severe atypia [id number], CDT specimen collection date 07/26/2021), no residual [...] Organization Address City/State/ZIP Code Phon e Number [facility] - [address] [place], [place] [address] [place] [address] Laboratories-[facility] [address] documented in this encounter Visit Diagnoses Diagnosis Nevus Atypical documented in this encounter Administered Medications Inactive Administered Medications - up to 3 most recent administrations Medication Order MAR Action Action Date Dose Rate Site lidocaine-EPINEPHrine 1%-1:200,000 Given 10/21/2021 3:14 PM CDT 6 mL injection 2-50 mL (XYLOCAINE W/EPI) 2-50 mL, injection, As needed, may repeat if the patient complains of pain/discomfort at the site up to 50 mL for entire procedure, Starting on Sun10/21/21 at 1421, For 1 day documented in this encounter
--- OUTSIDE RECORDS SUMMARY | 2021-12-18 13:16 | XMS_ITS | Encounter Summary ---
:1965 Author Organization [facility] Address [address] [place] [address] Care Team Providers Name Role Phone Unavailable Primary Care Provider Unavailable Encounter Details Date Type Department Care Team Description 08/04/2021 Clinical Communication Department of Estelita Szymanski, Dermatology in M.D. [place], [place] [address] [facility] [address] [place] [phone] Social History Tobacco Use Types Packs/Day Years [...] or relatives? How often do you attend anglican or More than 4 times per year 05/30/2021 restoration services? Do you belong to any clubs or Yes 05/30/2021 organizations such as anglican groups, unions, fraternal or athletic groups, or [...] place to sleep or slept in a fci (including now)? Education Answer Date Recorded What is the highest level of school you have Some college, n o degree 03/14/2019 completed or the highest degree you have received? Sex Assigned at Date Recorded Female 05/30/2021 11:58 AM CDT documented as of this encounter Miscellaneous Notes Telephone Encounter - Estelita Szymanski M.D. - 08/04/2021 5:33 PM CDT I called Ms. Wharton and discussed with her that the skin biopsy taken recently from the left upper paraspinal back was read out by our dermatopathologist as a junctional nevus with severe atypia and that it needs re-excision with 5-mm margins. I have recommended that she have that done in our Procedure Clinic at [facility]. I told her that a letter would be generated on the portal for her tomorrow by my racing secretary and handicapper. She should go on and once she sees the letter, call derm scheduling in [place] to have that surgical appointment scheduled. I also discussed what to expect with the procedure. She was appreciative of the phone call, and all questions answered. Estelita Szymanski M.D. CT CT Job ID: [id number] documented in this encounter Plan of Treatment Not on filedocumented as of this encounter Visit Diagnoses Not on filedocumented in this encounter
--- OUTSIDE RECORDS SUMMARY | 2021-12-18 13:16 | XMS_ITS | Encounter Summary ---
:1965 Author Organization [facility] Address [address] [place] [address] Care Team Providers Name Role Phone Unavailable Primary Care Provider Unavailable Reason for Visit Reason Comments Biopsy Outpatient (Routine) - Closed Specialty Diagnoses / Procedures Referred By Contact Refer red To Contact Dermatology Diagnoses Tumor Skin Uncertain Behavior Esteilta Szymanski M.D. [facility] Region Procedures Dermatology mis minor procedure [address] [place] [address] Referral ID Status Reason Start Date Expiration Date Visits Requ ested Visits Authorized [id number] Closed 09/01/2019 08/31/2020 1 1 Encounter Details Date Type Department Care Team Description 10/07/2019 Procedure visit Department of Estelita Szymanski Tumor Skin Uncertain Dermatology in Renny Harris M.D. [place], [place] [address] [phone] Social History Tobacco Use Types Packs/Day Years [...] or relatives? How often do you attend orthodoxy or More than 4 times per year 05/30/2021 mormonism services? Do you belong to any clubs or Yes 05/30/2021 organizations such as orthodoxy groups, unions, fraternal or athletic groups, or [...] place to sleep or slept in a long term (including now)? Education Answer Date Recorded What is the highest level of school you have Some college, n o degree 03/14/2019 completed or the highest degree you have received? Sex Assigned at Date Recorded Female 05/30/2021 11:58 AM CDT documented as of this encounter Progress Notes Estelita Szymanski M.D. - 10/07/2019 8:45 AM CDT SUBJECTIVE CHIEF COMPLAINT / REASON FOR VISIT Return for shave biopsy of a lesion involving right distal reece HISTORY OF PRESENT ILLNESS Ms. Caitlyn Wharton is a 54 y.o. female who returns today for a shave biopsy of a lesion suspicious for a squamous cell carcinoma involving the right distal reece. In addition, the patient had adjacent contact dermatitis from Neosporin and I had asked her to stop the Neosporin which she has done. Thepatient denies a personal or family history of melanoma. She has a personal history of SCC in situ involving the central sternum post curettage and cryotherapy in March 2019. Allergies Allergen Reactions ??? Hydrocodone-Acetaminophen Hives and Itching MEDICAL HISTORY 1. 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 Back: History of tinea versicolor, resolved FAMILY HISTORY No family history for melanoma OBJECTIVE PHYSICAL EXAMINATION General: Awake, alert, in no acute distress, and with appropriate affect. Skin: Limited skin exam done today. Examination of the right reece reveals a small scar and barely elevated telangiectatic papule adjacent to the scar. The previous adjacent contact dermatitis reaction from the Neosporin has resolved. ASSESSMENT / PLAN #1 Right distal reece: Scar. rule out basal cell carcinoma The overall lesion has improved since last time as the contact dermatitis has resolved with the discontinuation of the Neosporin. Given the small raised telangiectatic papule adjacent to the scar remaining, a small shave biopsy was done today for Pathology. I will correspond with her as to the resultsand if any further treatment is needed. CONSENT Discussed the risks, benefits, alternatives, and the necessity of other members of the healthcare team participating in the procedure. All questions answered and consent given. UNIVERSAL PROTOCOL Procedural pause conducted to verify: correct patient identity, procedure to be performed, and as applicable, correct side and site, correct patient position, and availability of implants, special equipment, or special requirements. PROCEDURE INFORMATION Shave biopsy. We explained the potential diagnosis and recommended that we obtain a biopsy. The risks and benefitsof the procedure were discussed, and the patient consented to these procedures. Using 1% lidocaine with epinephrine for local anesthesia, a shave biopsy was obtained from the right distal reece. Biopsy submitted to Dermatopathology for H&E. Special stains will be performed as indicated. The bleeding was well controlled with application of aluminum chloride. Dressing was applied, and wound care instructions were explained. Biopsy results and any further recommendations will be communicated to the patient by letter. Patient given pamphlet [id number]. PATIENT EDUCATION: Ready to learn. No apparent learning barriers were identified. Learning preferences include listening. Explained diagnosis and treatment plan; patient/guardian of patient expressed understanding of thecontent. documented in this encounter Miscellaneous Notes Result Encounter Note - Estelita Szymanski M.D. - 10/14/2019 4:31 PM CDT Benign lesion letter. Renny Fried patient. Please send letter documented in this encounter Plan of Treatment Not on filedocumented as of this encounter Procedures Procedure Name Priority Date/Time Associated Comments Diagnosis DERMATOPATHOLOGY CONSULT Routine 10/07/2019 9:05 Tumor Skin Results for this AM CDT Uncertain Behavior procedure are in the results section. documented in this encounter Results Dermatopathology Consult (10/07/2019 9:05 AM CDT) Component Value Ref Test Analysis Performed Pathologis t Range Method Time At Signature 10/14/2019 PDRM 9:17 AM CDT Report Eloy MarreroMeghan 10/14/2019 PDR electronically Yumiko Cota 9:17 AM signed by CDT Gross Received in formalin labeled with the patient's name, 10/14/2019 PDRM Description: medical record number, and right reece is a 0.7 x 0.6 x 9:17 AM 0.1 cm pale lisa skin shave biopsy. ??Eccentrically located CDT on the skin surface and abutting the periphery is a 0.4 x 0.3 cm pale lisa-yellow, opaque lesion with ill-defined borders. ??The specimen is bisected longitudinally and submitted entirely in cassette A1. Grossed by ARIANNE. Interpetation FINAL DIAGNOSIS 10/14/2019 PDRM A. ??DermPath Consult Wet Tissue; Right reece, Skin shave 9:17 AM biopsy: ??Epidermal hyperplasia, focal spongiosis, CDT superficial dermal angioplasia, and superficial dermal lymphocytic inflammation and focal macular seborrheic keratosis at edge of biopsy COMMENT Clinical photo reviewed. ??Multiple tissue levels examined. PAS-D stain is negative for fungal microorganisms. Specimen Anatomical Collection Method Collection Time Receive d Time (Source) Location / / Volume Laterality Tissue 10/07/2019 9:05 AM 0 8:49 CDT AM CDT Narrative This result has an attachment that is no t available. Estelita Szymanski M.D. LAB PATH DERM ORDERABLES Performing Organization Address City/State/ZIP Code Phon e Number [facility] - [address] [place], [place] [address] [facility] [place] [address] Laboratories-[facility] [address] documented in this encounter Visit Diagnoses Diagnosis Tumor Skin Uncertain Behavior documented in this encounter Administered Medications Inactive Administered Medications - up to 3 most recent administrations Medication Order MAR Action Action Date Dose Rate Site lidocaine-EPINEPHrine 1 %-1:100,000 Given 10/07/2019 9:00 AM CDT 1 mL Other injection 1 mL (XYLOCAINE W/EPI) 1 mL, infiltration, Once, On Sun10/07/19 at 0915, For 1 dose documented in this encounter
--- OUTSIDE RECORDS SUMMARY | 2021-12-18 13:16 | XMS_ITS | Encounter Summary ---
:1965 Author Organization [facility] Address [address] [place] [address] Care Team Providers Name Role Phone Unavailable Primary Care Provider Unavailable Reason for Referral Outpatient (Routine) - Closed Specialty Diagnoses / Procedures Referred By Contact Refer red To Contact Diagnoses Nevus Atypical Estelita Szymanski M.D. [facility] Procedures GABRIELE Excision 1-2 sites [address] [place] [phone] Referral ID Status Reason Start Date Expiration Date Visits Requ ested Visits Authorized [id number] Closed 08/05/2021 08/05/2022 1 1 Encounter Details Date Type Department Care Team Description 08/05/2021 Orders Only Department of Estelita Szymanski, Nev Atyp ical (Primary Dermatology in M.D. Dx) [place], [place] [address] [place] [address] [place] [phone] Social History Tobacco Use Types Packs/Day Years [...] or relatives? How often do you attend mosque or More than 4 times per year 05/30/2021 mormon services? Do you belong to any clubs or Yes 05/30/2021 organizations such as mosque groups, unions, fraternal or athletic groups, or [...] place to sleep or slept in a senior living (including now)? Education Answer Date Recorded What is the highest level of school you have Some college, n o degree 03/14/2019 completed or the highest degree you have received? Sex Assigned at Date Recorded Female 05/30/2021 11:58 AM CDT documented as of this encounter Plan of Treatment Scheduled Orders Name Type Priority Associated Diagnoses Order S chedule GABRIELE Excision 1-2 sites Dermatology Routine Nevus Atypical Exp ected: 08/19/2021 (Approximate), Expires: 2022 documented as of this encounter Visit Diagnoses Diagnosis Nevus Atypical - Primary documented in this encounter
--- OUTSIDE RECORDS SUMMARY | 2021-12-18 13:16 | XMS_ITS | Encounter Summary ---
:1965 Author Organization [facility] Address [address] [place] [id number] Care Team Providers Name Role Phone Unavailable Primary Care Provider Unavailable Reason for Referral Outpatient (Routine) - Closed Specialty Diagnoses / Procedures Referred By Contact Refer red To Contact Dermatology Estelita Szymanski M.D . [facility] [address] [place] [phone] Referral ID Status Reason Start Date Expiration Date Visits Requ ested Visits Authorized [id number] Closed 03/18/2019 03/17/2020 1 1 Y LOOM WEAVER Reason for Visit Reason Comments Follow-up Outpatient (Routine) - Closed Specialty Diagnoses / Procedures Referred By Contact Refer red To Contact Dermatology Estelita Szymanski M.D . [address] [phone] Referral ID Status Reason Start Date Expiration Date Visits Requ ested Visits Authorized [id number] Closed 02/04/2019 02/04/2020 1 1 Encounter Details Date Type Department Care Team Description 03/18/2019 Office Visit Department of Estelita Szymanski Squamous C ell Dermatology in [place] Carcinoma In Situ [address] (Primary Dx) [address] [phone] Social History Tobacco Use Types Packs/Day Years [...] or relatives? How often do you attend lutheran or More than 4 times per year 05/30/2021 orthodoxy services? Do you belong to any clubs or Yes 05/30/2021 organizations such as lutheran groups, unions, fraternal or athletic groups, or [...] encounter Progress Notes Estelita Szymanski M.D. - 03/18/2019 11:15 AM CST SUBJECTIVE CHIEF COMPLAINT/REASON FOR VISIT Treatment of SCC in situ involving central sternum HISTORY OF THE PRESENT ILLNESS Caitlyn Wharton is a pleasant 53 y.o. 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 I discussed with Apple that the biopsy showed an SCC in situ with negative margins. However, given that the margins were minimal, we discussed further treatment with light curettage and cryotherapy to reduce the risk of recurrence and she was agreeable to proceed. I also discussed previously on the phone with her that the biopsy taken from the rash involving her back show tineaversicolor as expected not had already prescribed ketoconazole cream twice daily for 3-4 weeks. She states that her applied it to her back for approximately 4 days with complete resolution so they stopped the cream. Finally, the 3rd biopsy taken from the left upper arm at shown granuloma annulare as expected. I again discussed the result with her today and told her that this is a benign rash and given that it is a solitary lesion we could simply observe for spontaneous resolution which can sometimes occur or treat with topical steroid cream. She prefers just to observe for the time being and it is already improving a little bit after the biopsy. OBJECTIVE PHYSICAL EXAMINATION General: Awake, alert, in no acute distress, and with appropriate affect. Skin: Examination of her upper central chest/sternum reveals an 8 x 6 mm shave biopsy scar with no lesion and no infection. Examination of her back reveals no evidence for her previous tinea versicolorrash. Examination of her left antecubital fossa reveals an approximately 1 x 1 cm violaceous annularnon scaly patch that is not infiltrative or indurated. ASSESSMENT/PLAN #1 Upper central sternum: SCC in situ As discussed above, we treated this with light curettage and cryotherapy today to decrease risk of recurrence. She will follow up for recheck in 2 months to ensure adequate healing and no recurrence. Procedure note: After informed consent was obtained risks and benefits explained the area was prepped with alcohol and lidocaine 1% with epinephrine was injected. She denies any allergies to local anesthetic. The area was treated with curettage and cryotherapy times to achieving tumor free margins with a thaw cycle of 15-20 seconds. Final defect size was 1 x 0.8 cm. There were no complications and bleeding was minimal. Wound dressing applied and nursing care instructions given. #2 Back: History of tinea versicolor Previous rash has resolved with the ketoconazole cream which she discontinued after 4 days. I did tell her that the duration of treatment with short but there is no evidence today for the tinea versicolor. We discussed that if it reoccurs she should restart the ketoconazole cream twice daily for approximately 2-3 weeks. Follow up as needed. 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 We discussed that this is a benign condition and given that it is a solitary lesion we could simply observe as they can sometimes spontaneously resolve or treat with a topical steroid cream. Given that it is asymptomatic and she is not concerned with a as well as the fact that it has slightly improved after the biopsy, she prefers to observe for the time being which is certainly reasonable. If there's any worsening she will let me know. PATIENT EDUCATION: Ready to learn. No apparent learning barriers were identified. Learning preferences include listening. Explained diagnosis and treatment plan; patient/guardian of patient expressed understanding of thecontent. Y LOOM WEAVER documented in this encounter Plan of Treatment Scheduled Referrals Name Type Priority Associated Order Schedule Diagnoses Dermatology office Outpatient Referral Routine Ex pected: visit (clinic) 03/18/2019 (Approximate), Expires: 03/18/2022 documented as of this encounter Visit Diagnoses Diagnosis Squamous Cell Carcinoma In Situ - Primar y documented in this encounter Administered Medications Inactive Administered Medications - up to 3 most recent administrations Medication Order MAR Action Action Date Dose Rate Site lidocaine-EPINEPHrine 1 %-1:100,000 Given 03/18/2019 11:35 AM CS T 1 mL injection 1 mL (XYLOCAINE W/EPI) 1 mL, infiltration, Once, On Sun03/18/19 at 1130, For 1 dose documented in this encounter
--- OUTSIDE RECORDS SUMMARY | 2021-12-18 13:16 | XMS_ITS | Encounter Summary ---
:1965 Author Organization [facility] Address [address] [place] [address] Care Team Providers Name Role Phone Unavailable Primary Care Provider Unavailable Reason for Referral Outpatient (Routine) - Closed Specialty Diagnoses / Procedures Referred By Contact Refer red To Contact Dermatology Estelita Szymanski M.D . [facility] [address] [place], [place] [phone] Referral ID Status Reason Start Date Expiration Date Visits Requ ested Visits Authorized [id number] Closed 02/04/2019 02/04/2020 1 1 Scheduling Instructions Please schedule SundayMarch 18 at 11:15 a.m. R BLENDER Reason for Visit Reason Comments Biopsy Encounter Details Date Type Department Care Team Description 02/04/2019 Procedure visit Department of Estelita Szymanski Tumor Skin Uncertain Behavior (Primary Dx); Dermatology in [place] Harris M.D. Tumor Ear Skin Uncertain Behavior; [place], [place] [address] [facility] Pityriasis Versicolor; [id number] [place] [phone] Social History Tobacco Use Types Packs/Day Years [...] or relatives? How often do you attend oriental orthodox or More than 4 times per year 05/30/2021 muslim services? Do you belong to any clubs or Yes 05/30/2021 organizations such as oriental orthodox groups, unions, fraternal or athletic groups, or [...] or slept in a fci (including now)? Sex Assigned at Date Recorded Female 05/30/2021 11:58 AM CDT documented as of this encounter Progress Notes Estelita Szymanski M.D. - 02/04/2019 10:30 AM CST CHIEF COMPLAINT/REASON FOR VISIT Return for biopsies of upper central sternum, right mid-paraspinal back and left anterior arm (flexor forearm) HISTORY OF PRESENT ILLNESS Ms. Caitlyn Wharton is a 53 y.o. female who returns for a shave biopsy of the upper central sternum to rule out squamous cell carcinoma, a 4-mm punch biopsy of the right mid-paraspinal back to rule out tinea versicolor and a 4-mm punch biopsy of the left anterior arm (flexor forearm) to confirm granuloma annulare. The patient has a history of squamous cell carcinoma in situ involving the left distal thigh, status post curettage and cryotherapy at the [facility] on 06/26/17. She denies a personal or family history for melanoma. The patient uses sunscreen (SPF 30+). She has no other concerns today. Allergies Allergen Reactions ??? Hydrocodone-Acetaminophen Hives and Itching PAST MEDICAL HISTORY 1. 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 Negative for melanoma FAMILY HISTORY Negative for melanoma PHYSICAL EXAM General: Awake, alert, in no acute distress, and with appropriate affect. Skin: Examination of the left anterior arm (flexor forearm) reveals a 1 cm x 1 cm annular plaque with central clearing but no scaling. Examination of the upper central sternum reveals an 8 mm x 3 mm red scaly macule, likely representing an actinic keratosis though cannot exclude a squamous cell carcinoma. Examination of the mid-back reveals a few pinkish-brown slightly scaly patches. IMPRESSION/REPORT/PLAN #1 Upper central sternum: Actinic keratosis, rule out squamous cell carcinoma We recommend a shave biopsy of the upper central sternum. Photograph taken 01/20/19 with patient's verbal consent. Plan for a return visit on 03/18/19 to review pathology results and discuss treatment options if indicated. PROCEDURAL PAUSE: Procedural pause conducted to verify: correct patient identity, procedure to be performed, and as applicable, correct side and site, correct patient position, and availability of implants, special equipment or special requirements. PROCEDURE DETAILS: Shave biopsy. We explained the potential diagnosis and recommended that we obtain a biopsy. The risks and benefitsof the procedure were discussed, and the patient consented to these procedures. The patient denies any allergies to local anesthetics. Using 1% lidocaine with epinephrine for local anesthesia, a shave biopsy was obtained from the upper central sternum. Biopsy submitted to Dermatopathology for H&E.Special stains will be performed as indicated. The bleeding was well controlled with application of aluminum chloride. Dressing was applied, and wound care instructions were explained. Biopsy results and any further recommendations will be communicated to the patient by letter. Patient given pamphlet [id number]. Discussed the risks, benefits, alternatives, and the necessity of other members of the healthcare team participating in the procedure. All questions answered and consent given. #2 Right mid-paraspinal back: Rule out tinea versicolor We recommend a 4-mm punch biopsy of the right mid-paraspinal back. Photograph taken 01/20/19 with patient's verbal consent. Plan for a return visit on 03/18/19 to review pathology results and discuss treatment options if indicated. PROCEDURAL PAUSE: Procedural pause conducted to verify: correct patient identity, procedure to be performed, and as applicable, correct side and site, correct patient position, and availability of implants, special equipment, or special requirements. PROCEDURE DETAILS: Punch biopsy We explained the potential diagnosis and recommended that we obtain a biopsy. The risks and benefitsof the procedure were discussed, and the patient consented to these procedures. The patient denies any allergies to local anesthetics. Using 1% lidocaine with epinephrine for local anesthesia, a 4-mm punch biopsy was obtained from the right mid-paraspinal back. Biopsy submitted to Dermatopathology. Biopsy site closed with a top layer of two 4-0 nylon skin sutures. The skin sutures need to be removed in 10-14 days. Dressing was applied, and wound care instructions were explained. Biopsy results and any further recommendations will be communicated to the patient by letter. Patient given pamphlet [id number]. Discussed the risks, benefits, alternatives, and the necessity of other members of the healthcare team participating in the procedure. All questions answered and consent given. #3 Left anterior arm (flexor forearm): Probable granuloma annulare We recommend a 4-mm punch biopsy of the left anterior arm (flexor forearm). Photograph taken 01/20/19 with patient's verbal consent. Plan for a return visit on 03/18/19 to review pathology results and discuss treatment options if indicated. PROCEDURAL PAUSE: Procedural pause conducted to verify: correct patient identity, procedure to be performed, and as applicable, correct side and site, correct patient position, and availability of implants, special equipment, or special requirements. PROCEDURE DETAILS: Punch biopsy We explained the potential diagnosis and recommended that we obtain a biopsy. The risks and benefitsof the procedure were discussed, and the patient consented to these procedures. The patient denies any allergies to local anesthetics. Using 1% lidocaine with epinephrine for local anesthesia, a 4-mm punch biopsy was obtained from the left anterior arm (flexor forearm). Biopsy submitted to Dermatopathology. Biopsy site closed with a top layer of two 4-0 nylon skin sutures. The skin sutures need to beremoved in 10-14 days. Dressing was applied, and wound care instructions were explained. Biopsy results and any further recommendations will be communicated to the patient by letter. Patient given pamphlet [id number]. Discussed the risks, benefits, alternatives, and the necessity of other members of the healthcare team participating in the procedure. All questions answered and consent given. PATIENT EDUCATION: Ready to learn. No apparent learning barriers were identified. Learning preferences include listening. Explained diagnosis and treatment plan; patient/guardian of patient expressed understanding of thecontent. By signing my name below, I, Pablo Escobar, attest that this documentation has been prepared under thedirection and in the presence of Estelita Szymanski M.D. Electronically Signed: marla Valadez. 02/04/2019. 10:30 AM. IEstelita M.D., personally performed the services described in this documentation. All medical record entries made by the scribe were at my direction and in my presence. I have reviewed the chart and discharge instructions (if applicable) and agree that the record reflects my personal performance and is accurate and complete. Estelita Szymanski M.D. . 02/04/2019. 11:12 AM. R BLENDER documented in this encounter Plan of Treatment Scheduled Orders Name Type Priority Associated Diagnoses Order S chedule GABRIELE Suture removal Dermatology Routine Tumor Skin Uncertain E xpected: 02/17/2019 Behavior (Approximate), Expires: 2021 Scheduled Referrals Name Type Priority Associated Order Schedule Diagnoses Dermatology office Outpatient Referral Routine Ex pected: visit (clinic) 03/18/2019 (Approximate), Expires: 02/04/2022 documented as of this encounter Procedures Procedure Name Priority Date/Time Associated Comments Diagnosis DERMATOPATHOLOGY CONSULT Routine 02/04/2019 10:31 Tumor Skin Results for this AM FLOUR BLENDER Uncertain Behavi or procedure are in Tumor Ear Skin the results Uncertain Behavior section. documented in this encounter Results Dermatopathology Consult (02/04/2019 10:31 AM FLOUR BLENDER) Component Value Ref Test Analysis Performed Pathologis t Range Method Time At Signature 02/10/2019 PDRM 4:11 PM FLOUR BLENDER Report Leslie N. 02/10/2019 FAZAL electronically Yumiko Corwley 4:11 PM signed by FLOUR BLENDER Gross A: ??Received in formalin labeled with the patient's name, 02/10/2019 PDRM Description: medical record number, and left anterior upper arm, 4:11 PM flexeral forearm is a 0.4 cm in diameter pale lisa FLOUR BLENDER previously inked skin punch biopsy excised to the depth of 0.3 cm. No discrete lesion is grossly identified on the skin surface. ??Specimen is bisected and submitted entirely in cassette A1. Grossed by AF. B: ??Received in formalin labeled with the patient's name, medical record number, and right mid paraspinal back is a 0.5 cm in diameter pale-lisa, previously inked ovoid skin punch excised to the depth of 0.3 cm. No discrete lesion is grossly identified on the skin surface. ??Specimen is bisected and submitted entirely in cassette B1. Grossed by AF. C: ??Received in formalin labeled with the patient's name, medical record number, and sternum, upper central is a 0.7 x 0.5 x 0.1 cm pale-lisa, previously inked, translucent skin shave biopsy. ??Centrally located on the skin surface is a 0.2 x 0.2 cm slightly raised, firm, nodular lesion with ill-defined and irregular borders. ??Specimen is bisected longitudinally and submitted entirely in cassette C1. Grossed by AF. Interpetation FINAL DIAGNOSIS 02/10/2019 PDRM A. ??DermPath Consult Wet Tissue; Left anterior upper arm, 4:11 PM flexeral forearm, Skin punch biopsy: ??Granuloma annulare FLOUR BLENDER B. ??DermPath Consult Wet Tissue; Right mid paraspinal back, Skin punch biopsy: ??Tinea versicolor C. ??DermPath Consult Wet Tissue; Sternum, upper central, Skin shave biopsy: ??Squamous cell carcinoma in situ, borders appear free of tumor COMMENT Absence of tumor at borders in sections from a shave or punch specimen does not necessarily indicate that the lesion has been completely removed. ??Clinical and pathological correlation is recommended to determine adequacy of removal. Specimen Anatomical Collection Method Collection Time Receive d Time (Source) Location / / Volume Laterality Tissue 02/04/2019 10:31 02/05/2019 8:24 AM FLOUR BLENDER AM FLOUR BLENDER Narrative This result has an attachment that is no t available. Estelita Szymanski M.D. LAB PATH DERM ORDERABLES Performing Organization Address City/State/ZIP Code Phon e Number [facility] - [address] [place], [place] [address] [facility] [place] [address] Laboratories-[facility] [address] documented in this encounter Visit Diagnoses Diagnosis Tumor Skin Uncertain Behavior - Primary Tumor Ear Skin Uncertain Behavior Pityriasis Versicolor Granuloma Annulare documented in this encounter Administered Medications Inactive Administered Medications - up to 3 most recent administrations Medication Order MAR Action Action Date Dose Rate Site lidocaine-EPINEPHrine 1 %-1:100,000 Given 02/04/2019 10:35 AM CS T 1 mL injection 1 mL (XYLOCAINE W/EPI) 1 mL, infiltration, Once, On Sun02/04/19 at 1030, For 1 dose documented in this encounter
--- OUTSIDE RECORDS SUMMARY | 2021-12-18 13:16 | XMS_ITS | Encounter Summary ---
:1965 Author Organization [facility] Address [address] [place] [address] Care Team Providers Name Role Phone Unavailable Primary Care Provider Unavailable Reason for Referral Outpatient (Routine) - Authorized Specialty Diagnoses / Procedures Referred By Contact Refer red To Contact Diagnoses Tumor Skin Uncertain Behavior Estelita Szymanski M.D. [facility] Region Procedures GABRIELE Suture removal [address] [place] [address] Referral ID Status Reason Start Date Expiration Date Visits V isits Requested Authorized [id number] Authorized 07/26/2021 07/26/2022 1 1 utpatient (Routine) - Authorized Specialty Diagnoses / Procedures Referred By Contact Refer red To Contact Dermatology Diagnoses Tumor Skin Uncertain Behavior Estelita Szymanski M.D. [facility] Region [address] [place] [address] Referral ID Status Reason Start Date Expiration Date Visits V isits Requested Authorized [id number] Authorized 07/26/2021 07/26/2022 1 1 Scheduling Instructions Please schedule for suture removal of le ft upper paraspinal back on either 08/08/21 or 08/09/21, thanks! Reason for Visit Reason Comments Biopsy Outpatient (Routine) - Closed Specialty Diagnoses / Procedures Referred By Contact Refer red To Contact Dermatology Diagnoses Nevi Multiple Estelita Szymanski M.D. [facility] Region Procedures Dermatology misc minor procedure [address] [place], [place] [address] Referral ID Status Reason Start Date Expiration Date Visits Requ ested Visits Authorized [id number] Closed 06/06/2021 06/06/2022 1 1 Encounter Details Date Type Department Care Team Description 07/26/2021 Procedure visit Department of Estelita Szymanski Tumor Skin Uncertain Behavior (Primary Dx); Dermatology in [facility] Harris M.D. [place], [place] [address] [phone] Social History Tobacco Use Types Packs/Day [...] or relatives? How often do you attend muslim or More than 4 times per year 05/30/2021 nondenominational services? Do you belong to any clubs or Yes 05/30/2021 organizations such as muslim groups, unions, fraternal or athletic groups, or [...] place to sleep or slept in a [facility] (including now)? Education Answer Date Recorded What is the highest level of school you have Some college, n o degree 03/14/2019 completed or the highest degree you have received? Sex Assigned at Date Recorded Female 05/30/2021 11:58 AM CDT documented as of this encounter Progress Notes Estelita Szymanski M.D. - 07/26/2021 9:30 AM CDT SUBJECTIVE CHIEF COMPLAINT / REASON FOR VISIT Biopsy x 1 HISTORY OF PRESENT ILLNESS Caitlyn Wharton is a pleasant 56 y.o. female who presents for a biopsy x 1 of a lesion involving the left upper paraspinal back. The patient was last seen by me in Dermatology clinic on 06/06/21. 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 She denies a personal or family history for melanoma. She uses sunscreen. She denies any new or changing lesions today. MEDICAL HISTORY 1. Central sternum: History of squamous cell carcinoma in situ, status post curettage and cryotherapy in March 2019 2. Negative for melanoma FAMILY HISTORY Negative for melanoma OBJECTIVE PHYSICAL EXAMINATION General: Awake, alert, in no acute distress, and with appropriate affect. Skin: Limited skin exam done today. Examination of the left upper paraspinal back reveals a 5 x 2 mm brown nevus with slight irregular pigmentation. ASSESSMENT / PLAN #1 Left upper paraspinal back: Rule out atypical nevus We recommend a 6-mm punch biopsy of the left upper central spine. Photograph taken today with patient's verbal consent. We will correspond as to the results and if any further treatment is needed. PROCEDURAL PAUSE: Procedural pause conducted to verify: [...] lidocaine with epinephrine for local anesthesia, a 6-mm punch biopsy was obtained from the left upper paraspinal friends. Biopsy submitted to Dermatopathology. Biopsy site closed with a top layer of three 4-0 nylon skin sutures. The skin sutures need to be removed in 10-14 days. Dressing was applied, and wound care instructions were explained. Biopsy resultsand any further recommendations will be communicated to the patient by letter. Patient given pamphlet [id number]. Discussed the risks, benefits, alternatives, and the [...] Estelita Szymanski M.D. Electronically Signed: marla Sharp. 07/25/2021. 5:57 PM CDT. IEstelita M.D., personally performed the services described in this documentation. All medical record entries made by the scribe were at my direction and in my presence. I have reviewed the chart and discharge instructions (if applicable) and agree that the record reflects my personal performance and is accurate and complete. Estelita Szymanski M.D. documented in this encounter Miscellaneous Notes Result Encounter Note - Estelita Szymanski M.D. - 08/04/2021 5:26 PM CDT Left upper paraspinal back: Junctional nevus with severe atypia- needs re- excision with 5 mm marginsin our Procedure Clinic. Renny Fried patient. Please send letter documented in this encounter Plan of Treatment Scheduled Orders Name Type Priority Associated Diagnoses Order S chedule GABRIELE Suture removal Dermatology Routine Tumor Skin Uncertain E xpected: 08/08/2021, Behavior Expires: 2022 Scheduled Referrals Name Type Priority Associated Order Schedule Diagnoses Dermatology nurse Outpatient Referral Routine Tumor Skin Exp ected: visit (clinic) Uncertain Behavior 022, Expires: 10/26/2022 documented as of this encounter Procedures Procedure Name Priority Date/Time Associated Comments Diagnosis DERMATOPATHOLOGY CONSULT Routine 07/26/2021 9:42 Tumor Skin Results for this AM CDT Uncertain Behavior procedure are in the results section. documented in this encounter Results Dermatopathology Consult (07/26/2021 9:42 AM CDT) Component Value Ref Test Analysis Performed At [facility] Range Method Time Signature 08/03/2021 PDR 2:56 PM CDT Participated in Yoanna 08/03/2021 [facility] the Interpretation Carlos, 2:56 PM CDT Yumiko-Patholog y Fellow Report Toya Peng 08/03/2021 [facility] electronically Yumiko Hamm 2:56 PM CDT signed by Gross Description: Received in formalin labeled with the patient's name, 08/03/2021 [facility] medical record number, and left upper paraspinal back is 2:56 PM CDT a 0.6 cm diameter pale lisa skin punch biopsy excised to a depth of 0.4 cm. ??Eccentrically located on the skin surface is a 0.4 x 0.3 cm lisa-brown, pigmented, rugose lesion with irregular borders. ??Specimen is bisected and submitted entirely in cassette A1. ??Grossed by CAROLW. Interpetation FINAL DIAGNOSIS 08/03/2021 [facility] A. ??DermPath Consult Wet Tissue; Left upper paraspinal 2:56 PM CDT back, Skin punch biopsy: ??Junctional nevus with severe atypia, extending to within 1.4 mm of the nearest lateral biopsy border COMMENT Melan A stain highlights the melanocytes. Clinical photo reviewed. Specimen Anatomical Collection Method Collection Time Receive d Time (Source) Location / / Volume Laterality Tissue 07/26/2021 9:42 AM CDT 11:59 AM CDT Narrative This result has an attachment that is no t available. Estelita Szymanski M.D. LAB PATH DERM ORDERABLES Performing Organization Address City/State/ZIP Code Phon e Number [facility] - [address] [place], [place] [address] [place] [address] [facility] [address] documented in this encounter Visit Diagnoses Diagnosis Tumor Skin Uncertain Behavior - Primary Nevi Multiple documented in this encounter
--- OUTSIDE RECORDS SUMMARY | 2021-12-18 13:16 | XMS_ITS | Encounter Summary ---
:1965 Author Organization [facility] Address [address] [place] [address] Care Team Providers Name Role Phone Unavailable [...] or relatives? How often do you attend hinduism or More than 4 times per year 05/30/2021 uatsdin services? Do you belong to any clubs or Yes 05/30/2021 organizations such as hinduism groups, unions, fraternal or athletic groups, or [...] 9:19 AM Resu lts for this EXAM GUN NUMBERER procedure are i n the results section. documented in this encounter Results Back right 50 [phone]-Dermatology Image Exam (01/20/2019 9:19 AM GUN NUMBERER) Specimen (Source) Anatomical Collection Method Collection Time Re ceived Time Location / / Volume Laterality 01/20/2019 9:17 AM GUN NUMBERER Narrative [facility] - 01/20/2019 9:19 AM GUN NUMBERER This order has been created and auto-finalized [...]
--- OUTSIDE RECORDS SUMMARY | 2021-12-18 13:16 | XMS_ITS | Encounter Summary ---
:1965 Author Organization [facility] Address [address] [place] [address] Care Team Providers Name Role Phone Unavailable Primary Care Provider Unavailable Encounter Details Date Type Department Care Team Description 09/01/2019 Ancillary Procedure Department of Dermatology Social History [...] or relatives? How often do you attend confucianist or More than 4 times per year 05/30/2021 buddhist services? Do you belong to any clubs or Yes 05/30/2021 organizations such as confucianist groups, unions, fraternal or athletic groups, or [...] or slept in a half-way (including now)? Education Answer Date Recorded What [...] Date/Time Associated Comments Diagnosis DERMATOLOGY IMAGE Routine 09/01/2019 8:44 AM Resu lts for this EXAM CDT procedure are i n the results section. documented in this encounter Results lower extremity, right anterior reece 406-Dermatology Image Exam (09/01/2019 8:44 AM CDT) Specimen (Source) Anatomical Collection Method Collection Time Re ceived Time Location / / Volume Laterality 09/01/2019 8:42 AM CDT Narrative [facility] - 09/01/2019 8:44 AM CDT This order has been created [...]
--- OUTSIDE RECORDS SUMMARY | 2021-12-18 13:17 | XMS_ITS | Encounter Summary ---
:1965 Author Organization [facility] Address [address] [place] [id number] Care Team Providers Name Role Phone Unavailable Primary Care Provider Unavailable Reason for Referral Outpatient (Routine) - Closed Specialty Diagnoses / Procedures Referred By Contact Refer red To Contact Dermatology Estelita Szymanski M.D . [facility] Region [address] [place] [phone] Referral ID Status Reason Start Date Expiration Date Visits Requ ested Visits Authorized [id number] Closed 11/06/2017 11/06/2018 1 1 Reason for Visit Reason Comments Lesion Recheck of left distal thigh SCC, treated with C& C Encounter Details Date Type Department Care Team Description 11/06/2017 Procedure visit Department of Estelita Szymanski Cancer Ski n Squamous Cell Personal History (Primary Dx); Dermatology in Renny Harris M.D. [place], [place] [address] [phone] Social History Tobacco Use Types Packs/Day Years [...] or relatives? How often do you attend episcopalian or More than 4 times per year 05/30/2021 jewish services? Do you belong to any clubs or Yes 05/30/2021 organizations such as episcopalian groups, unions, fraternal or athletic groups, or [...] or slept in a residential (including now)? Sex Assigned at Date Recorded Female 05/30/2021 11:58 AM CDT documented as of this encounter Progress Notes Estelita Szymanski M.D. - 11/06/2017 8:00 AM CDT CHIEF COMPLAINT Recheck left distal thigh following curettage and cryotherapy HISTORY OF THE PRESENT ILLNESS Caitlyn Wharton is a pleasant 52 y.o. female who follows up for a recheck of her left distal thighfollowing curettage and cryotherapy. The patient has a history of squamous cell carcinoma in situ involving her left distal thigh treated with curettage and cryotherapy at the [facility] on 06/26/17. During her last visit here on 10/02/17, she still had dry skin where the curettage and cryotherapywas previously performed. She was advised to continue applying moisturizer to this area and return for a recheck. The area of dry skin has since improved. She denies any pain or itching. PAST MEDICAL HISTORY 1. Squamous cell carcinoma in situ left distal thigh treated with curettage and cryotherapy 06/26/17 ?? FAMILY HISTORY No family history for melanoma. PHYSICAL EXAM General: Awake, alert, in no acute distress, and with appropriate affect. Skin: Examination of the left thigh reveals a 1 cm x 1 cm slightly atrophic scar which is slightly dry at the distal edge. No evidence for recurrence of squamous cell carcinoma in situ. IMPRESSION AND PLAN #1 Left distal thigh: History of squamous cell carcinoma in situ, resolved ?? Status post curettage and cryotherapy on 06/26/17. Scar with minimal dry skin on the distal edge thistime. There is no evidence for a recurrence of her squamous cell carcinoma in situ. I have asked herto apply Vanicream or CeraVe twice a day to the distal edge. Follow-up immediately if any evidence for recurrence. Return in two months for recheck and full skin cancer screening exam. PATIENT EDUCATION Ready to learn. No apparent learning barriers were identified. Learning preferences include listening. Explained diagnosis and treatment plan; patient/guardian of patient expressed understanding of thecontent. By signing my name below, I, Ronald Smyth, attest that this documentation has been prepared underthe direction and in the presence of Estelita Szymanski M.D.. Electronically Signed: marla Galarza. 11/06/2017. 7:51 AM . I, Estelita Szymanski M.D., personally performed the services described in this documentation. All medical record entries made by the scribe were at my direction and in my presence. I have reviewed the chart and discharge instructions (if applicable) and agree that the record reflects my personal performance and is accurate and complete. Estelita Szymanski M.D. . 11/06/2017. 8:25 AM. documented in this encounter Plan of Treatment Scheduled Referrals Name Type Priority Associated Order Schedule Diagnoses Dermatology office Outpatient Referral Routine Ex pected: visit (clinic) 11/06/2017 (Approximate), Expires: 11/06/2020 documented as of this encounter Visit Diagnoses Diagnosis Cancer Skin Squamous Cell Personal Histo ry - Primary Lesion Skin documented in this encounter
--- OUTSIDE RECORDS SUMMARY | 2021-12-18 13:17 | XMS_ITS | Encounter Summary ---
:1965 Author Organization [facility] Address [address] [place] [address] Care Team Providers Name Role Phone Unavailable Primary Care Provider Unavailable Reason for Visit Reason Comments Skin Check Outpatient (Routine) - Closed Specialty Diagnoses / Procedures Referred By Contact Refer red To Contact Dermatology Estelita Szymanski M.D . [facility] Region [address] [place] [address] Referral ID Status Reason Start Date Expiration Date Visits Requ ested Visits Authorized [id number] Closed 11/06/2017 11/06/2018 1 1 Encounter Details Date Type Department Care Team Description 01/14/2018 Office Visit Department of Estelita Szymanski, Keratosis Actinic (Primary Dx); Dermatology in [facility] Calderon Nevi Multiple; [place], [place] [address] [facility] Keratosis Seborrheic; [address] [place] [address] Cancer Skin Squamous [place] [phone] Social History Tobacco Use Types Packs/Day Years [...] or relatives? How often do you attend faith or More than 4 times per year 05/30/2021 rastafari services? Do you belong to any clubs or Yes 05/30/2021 organizations such as faith groups, unions, fraternal or athletic groups, or [...] or slept in a correction (including now)? Sex Assigned at Date Recorded Female 05/30/2021 11:58 AM CDT documented as of this encounter Progress Notes Estelita Szymanski M.D. - 01/14/2018 1:15 PM CST CHIEF COMPLAINT/REASON FOR VISIT Full skin cancer screening exam Recheck of left distal thigh following curettage and cryotherapy HISTORY OF PRESENT ILLNESS Ms. Caitlyn Wharton is a 52 y.o. female who follows up for a full skin cancer screening exam. The patient has a history of squamous cell carcinoma in situ involving the left distal thigh treated withcurettage and [facility]otherapy at the [facility] on 06/26/17. During her last visit here on 11/06/17, she had minimal dry skin involving the distal edge of site of the curettage and cryotherapy. Her wound has healed well since the curettage and cryotherapy. No evidence of recurrence of squamous cell carcinoma at that time. The patient otherwise denies a history for skin cancer. No family history of melanoma. The patient reports occasional flaking skin involving the tip of her nose. No other areas of concern. Allergies Allergen Reactions ??? Hydrocodone-Acetaminophen Hives and Itching PAST MEDICAL HISTORY 1. History of squamous cell carcinoma in situ left distal thigh status post curettage and cryotherapy on 06/26/17 by me 2. 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 PHYSICAL EXAM General: Awake, alert, in no acute distress, and with appropriate affect. Eyes: No scleral injection or icterus. No eyelid abnormalities. Lymph: No lower extremity edema. No lymph nodes to popliteal fossa or inguinal areas. Skin: I have examined the scalp, face, neck, chest, abdomen, back, bilateral upper extremities, and bilateral lower extremities. Examination of the arms, legs, and trunk reveals multiple benign nevi and flat seborrheic keratoses. Examination of the left distal thigh reveals scar with no evidence of recurrence of squamous cell carcinoma in situ. Examination of the lower legs and upper back reveals multiple benign nevi and seborrheic keratoses. Examination of the right distal nasal tip reveals an actinic keratosis measuring 1-2 mm in diameter. No suspicious lesions for skin cancer today. IMPRESSION/REPORT/PLAN #1 Right distal nasal tip: Actinic keratosis CONSENT Discussed the risks, benefits, alternatives, and the necessity of other members of the healthcare team participating in the procedure. All questions answered and consent given. ?? PROCEDURE INFORMATION Given the precancerous nature of this lesion, treatment is medically indicated. After discussion of the risks, benefits and alternatives to treatment with cryotherapy, informed consent was obtained. Wetreated a total of 1 lesion with two 5-second freeze-thaw cycles of liquid nitrogen cryotherapy. Thepatient tolerated the procedure well. Aftercare instructions were provided in written and verbal form to the patient. Should any of these lesions recur, the patient should return for biopsy or further evaluation. Follow up in 1-2 months for recheck if these do not completely resolve. #2 Left distal thigh: History of squamous cell carcinoma in situ status post curettage and cryotherapy on 11/06/17 No evidence of recurrence on clinical examination today. Return in 1 year for full skin cancer screening exam. #3 Multiple nevi The ABCDE criteria for melanoma was reviewed with the patient. None of the patient's nevi reach the clinical threshold for biopsy. I recommend continued sun protection, self-skin examinations, and observation. Should any of the patient's nevi change in size, color, texture, or shape or develop symptoms such as itching or bleeding, I recommend an immediate return visit for reassessment. #4 Trunk and extremities: Seborrheic Keratosis The benign nature of the skin lesion(s) was discussed with the patient. No treatment is required. I recommend continued observation. Should symptoms or changes develop related to this condition, I would recommend a return visit for reassessment. PATIENT EDUCATION Ready to learn. No apparent learning barriers were identified. Learning preferences include listening. Explained diagnosis and treatment plan; patient/guardian of patient expressed understanding of thecontent. By signing my name below, I, Samina Osman, attest that this documentation has been prepared under the direction and in the presence of Estelita Szymanski M.D.. Electronically Signed: marla Messer. 01/14/2018. 12:07 PM . Estelita Funes M.D., personally performed the services described in this documentation. All medical record entries made by the scribe were at my direction and in my presence. I have reviewed the chart and discharge instructions (if applicable) and agree that the record reflects my personal performance and is accurate and complete. Estelita Szymanski M.D. . 01/14/2018. 2:21 PM. TRIMMER documented in this encounter Plan of Treatment Not on filedocumented as of this encounter Visit Diagnoses Diagnosis Keratosis Actinic - Primary Nevi Multiple Keratosis Seborrheic Cancer Skin Squamous Cell Personal Histo ry documented in this encounter
--- OUTSIDE RECORDS SUMMARY | 2021-12-18 13:17 | XMS_ITS | Encounter Summary ---
:1965 Author Organization [facility] Address [address] [place] [address] Care Team Providers Name Role Phone Unavailable Primary Care Provider Unavailable Reason for Visit Reason Comments Skin Check Appointment Request (Routine) - Closed Specialty Diagnoses / Procedures Referred By Contact Refer red To Contact Dermatology Referral ID Status Reason Start Date Expiration Date Visits Requ ested Visits Authorized [id number] Closed 01/16/2019 01/16/2020 1 1 Encounter Details Date Type Department Care Team Description 01/20/2019 Office Visit Department of Estelita Szymanski, Tumor Skin Uncertain Behavior (Primary Dx); Dermatology in [facility] Nevi Multiple; [place], [place] [address] [facility] Keratosis Seborrheic; [address] [place] [address] Cancer Skin Squamous Cell Pe rsonal History; [place] [address] Granuloma Annulare [phone] Social History Tobacco Use Types Packs/Day Years [...] or relatives? How often do you attend jew or More than 4 times per year 05/30/2021 scientologist services? Do you belong to any clubs or Yes 05/30/2021 organizations such as jew groups, unions, fraternal or athletic groups, or [...] encounter Progress Notes Estelita Szymanski M.D. - 01/20/2019 8:45 AM CST CHIEF COMPLAINT/REASON FOR VISIT Full skin cancer screening HISTORY OF PRESENT ILLNESS Ms. Caitlyn Wharton is a 53 y.o. female who presents for a full skin cancer screening exam. 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 She denies a personal or family history for melanoma. The patient uses sunscreen (SPF 30+). She has concerns today for a few lesions involving the chest, arms and legs. The patient also reports a history of hives back in August which lasted less than 24 hours. There was no associated angioedema, tongue swelling or shortness of breath. She alsohad a migraine at the time, and was taking Imitrex. The patient is unsure whether the hives was related to the Imitrex. Allergies Allergen Reactions ??? Hydrocodone-Acetaminophen Hives and Itching PAST MEDICAL HISTORY 1. Squamous cell carcinoma in situ involving left distal thigh, status post curettage and cryotherapy on 06/26/17 at the [facility] 2. 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 My nurse (Luna) served as a coil spring assembler for the entirety of the exam. Examination of the left distal thigh reveals no evidence for recurrence of squamous cell carcinoma. Examination of the left antecubital fossa reveals a 1 cm x 1 cm annular plaque with central clearing but no scaling. Examination of the right inferior breast reveals a 1.4 cm x 0.25 cm reddish-brown uniformly pigmented nevus. Examination of the upper central sternum reveals an 8 mm x 3 mm red scaly macule, likely representing an actinic keratosis though cannot exclude a squamous cell carcinoma. Examination of the right lower suprapubic area reveals a 1.5 cm x 0.9 cm pink-colored slightly verrucous patch, likely representing a benign nevus versus early seborrheic keratosis. Examination of the face, trunk and extremities reveals multiple benign-appearing nevi, lentigines and seborrheic keratoses. Examination of the mid-back reveals a few pinkish-brown patches. IMPRESSION/REPORT/PLAN #1 Upper central sternum: Actinic keratosis, rule out squamous cell carcinoma I advised a return to the procedure clinic on 02/04/19 for a shave biopsy. Photographs were taken today with the patient's verbal consent. #2 Right mid-paraspinal back: Probable tinea versicolor The differential diagnosis includes granuloma annulare given her GA appearing lesion elsewhere in 3 which is less likely and quite unlikely would be CTCL. I advised a return to the procedure clinic on 02/04/19 for a 4-mm punch biopsy. Photographs were taken today with the patient's verbal consent. 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 Photographs were taken today with the patient's verbal consent. #4 Face, trunk and extremities: Multiple nevi and lentigines The ABCDE criteria for melanoma was reviewed with the patient. None of the patient's nevi reach the clinical threshold for biopsy. We will monitor the lesions involving the right inferior breast and right lower suprapubic area. I recommend continued sun protection, self-skin examinations, and observation. Should any of the patient's nevi change in size, color, texture, or shape or develop symptoms such as itching or bleeding, I recommend an immediate return visit for reassessment. Follow up in 4 months for recheck of the stated lesions, or immediately if any new or changing lesions are noted. #5: Seborrheic keratosis The benign nature of the skin lesion(s) was discussed with the patient. No treatment is required. I recommend continued observation. Should symptoms or changes develop related to this condition, I would recommend a return visit for reassessment. #6 Left distal thigh: History of squamous cell carcinoma in situ, status post curettage and cryotherapy on 06/26/17 at the [facility] No clinical evidence of local recurrence today. Recommended monthly self-skin examinations to evaluate for new, changing, symptomatic, or otherwise worrisome lesions. Signs and symptoms of skin cancer discussed. Photoprotection was recommended. Return to Dermatology in 6-12 months for a full skin examor immediately if any new or changing lesions are noted. PATIENT EDUCATION: Ready to learn. No apparent learning barriers were identified. Learning preferences include listening. Explained diagnosis and treatment plan; patient/guardian of patient expressed understanding of thecontent. By signing my name below, Pablo Funes, attest that this documentation has been prepared under thedirection and in the presence of Estelita Szymanski M.D. Electronically Signed: marla Valadez. 01/20/2019. 9:15 AM. Estelita Funes M.D., personally performed the services described in this documentation. All medical record entries made by the scribe were at my direction and in my presence. I have reviewed the chart and discharge instructions (if applicable) and agree that the record reflects my personal performance and is accurate and complete. Estelita Szymanski M.D. . 01/20/2019. 10:47 AM. 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
--- OUTSIDE RECORDS SUMMARY | 2021-12-18 13:17 | XMS_ITS | Encounter Summary ---
:1965 Author Organization [facility] Address [address] [place] [address] Care Team Providers Name Role Phone Unavailable [...] or relatives? How often do you attend protestant or More than 4 times per year 05/30/2021 yazidi services? Do you belong to any clubs or Yes 05/30/2021 organizations such as protestant groups, unions, fraternal or athletic groups, or [...] 9:19 AM Resu lts for this EXAM TAFFY CANDY MAKER procedure are i n the results section. documented in this encounter Results sternum 201-Dermatology Image Exam (01/20/2019 9:19 AM TAFFY CANDY MAKER) Specimen (Source) Anatomical Collection Method Collection Time Re ceived Time Location / / Volume Laterality 01/20/2019 9:17 AM TAFFY CANDY MAKER Narrative [facility]IM[facility] - 01/20/2019 9:19 AM TAFFY CANDY MAKER This order has been created and auto-finalized [...]
--- OUTSIDE RECORDS SUMMARY | 2021-12-18 13:17 | XMS_ITS | Encounter Summary ---
:1965 Author Organization [facility] Address [address] [place] [address] Care Team Providers Name Role Phone Unavailable Primary Care Provider Unavailable Reason for Visit Reason Comments Skin Check Encounter Details Date Type Department Care Team Description 10/02/2017 Office Visit Department of Estelita Szymanski, Lesion Miranda n (Primary Dx); Dermatology in [facility] Cancer Skin Squamous Cell Personal Histo ry; [place], [place] [address] [facility] Keratosis Seborrheic; [address] [place] [address] [place] [phone] Social History Tobacco Use Types Packs/Day Years Used Date Smoking Tobacco: Never Assessed Alcohol Habits Answer Date Recorded How often [...] More than 4 times per year 05/30/2021 advent services? Do you belong to any clubs [...] place to sleep or slept in a mcc (including now)? Sex Assigned at Date Recorded Female 05/30/2021 11:58 AM CDT documented as of this encounter Progress Notes Estelita Szymanski M.D. - 10/02/2017 1:45 PM CDT CHIEF COMPLAINT/REASON FOR VISIT Recheck left distal thigh following curettage and cryotherapy HISTORY OF PRESENT ILLNESS Ms. Caitlyn Wharton is a 52 y.o. female who presents today for a full skin cancer screening examination. The patient has a history of squamous cell carcinoma in situ involving her left distal thigh treated with curettage and cryotherapy at the [facility] on 06/26/17. She reports she is healing well following the curettage and cryotherapy. The skin at the curettage and cryotherapy site scar hasbecome slightly flakey in the last two weeks. She applies moisturizing lotion daily to her skin including this area. Despite applying moisturizer to the area, the skin appears dry. Yesterday she tried a pplying another moisturizer with essential oils. Allergies Allergen Reactions ??? Hydrocodone-Acetaminophen Hives and Itching PAST MEDICAL HISTORY 1. Squamous cell carcinoma in situ left distal thigh treated with curettage and cryotherapy 06/26/17 FAMILY HISTORY No family history for melanoma. PHYSICAL EXAM General: Awake, alert, in no acute distress, and with appropriate affect. Eyes: No scleral injection or icterus. No eyelid abnormalities. Lymph: No lower extremity edema. Skin: Limited skin exam today. She is not due for a full skin exam until January 2018. Examination of the left distal thigh is a scar that 1.2 x 1.1 cm and within it is minimal dry skin and slight scaling. There is no evidence for a skin lesion or recurrence or infection. Examination of the right armreveals occasional benign lentigo and one flat seborrheic keratosis. IMPRESSION/REPORT/PLAN #1 Left distal thigh: History of squamous cell carcinoma in situ, resolved Scar with dry skin at this time. I doubt this is a recurrence of her squamous cell carcinoma in situgiven how soon it is following the biopsy and curettage and cryotherapy as well as the appearance today. I have asked her to apply Vanicream or CeraVe twice a day to the area for the next few weeks to see if this alleviates the dry skin. If it does not improve in the next 1-2 weeks I have asked her tocall me. Follow-up immediately if any evidence for recurrence. Otherwise follow up in 4 weeks after her planned camping trip. #2 Right arm: Seborrheic Keratosis The benign nature of the skin lesion(s) was discussed with the patient. No treatment is required. I recommend continued observation. Should symptoms or changes develop related to this condition, I would recommend a return visit for reassessment. She also had a few benign lentigines on the right arm. PATIENT EDUCATION Ready to learn. No apparent learning barriers were identified. Learning preferences include listening. Explained diagnosis and treatment plan; patient/guardian of patient expressed understanding of thecontent. By signing my name below, I, Ronald Smyth, attest that this documentation has been prepared underthe direction and in the presence of Estelita Szymanski M.D.. Electronically Signed: marla Galarza. 10/02/2017. 2:01 PM . IEstelita M.D., personally performed the services described in this documentation. All medical record entries made by the scribe were at my direction and in my presence. I have reviewed the chart and discharge instructions (if applicable) and agree that the record reflects my personal performance and is accurate and complete. Estelita Szymanski M.D. . 10/02/2017. 2:23 PM. documented in this encounter Plan of Treatment Scheduled Orders Name Type Priority Associated Diagnoses Order S chedule Dermatology misc minor Dermatology Routine Lesion Skin Expec karin: 11/06/2017 procedure (Approximate), Expires: 2020 documented as of this encounter Visit Diagnoses Diagnosis Lesion Skin - Primary Cancer Skin Squamous Cell Personal Histo ry Keratosis Seborrheic Lentigo documented in this encounter
--- OUTSIDE RECORDS SUMMARY | 2021-12-18 13:17 | XMS_ITS | Clinical Summary ---
:1965 Author Organization [facility] [place] [address] Care Team Providers Name Role Phone Thuy Ritchie MD Primary Care Provider [phone] Allergies Active Allergy Reactions Severity Noted Date Comments Hydrocodone-Acetaminophen Hives, Itching 08/28/2014 Medications Medication Sig Dispensed Refills Start Date End Date Status hydrochlorothiazide 12.5 Take 12.5 mg by 0 Active mg capsule mouth once daily. ibuprofen (ADVIL; Take 200 mg by 0 Active MOTRIN) 200 mg tablet mouth every 6 hours if needed. acetaminophen (TYLENOL) Take 500 mg by 0 Active 500 mg capsule mouth every 6 hours if needed (500-1000 prn pain). Max acetaminophen dose: 4000mg in 24 hrs. EPINEPHRINE (EPIPEN by Injection 0 Active 2-FANTA INJ) route. SUMAtriptan (IMITREX) 25 Take 25 mg by 0 Active mg tablet mouth every 2 hours if needed for Migraine. Max dose: 200mg per 24 hrs. 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 5 Social History Tobacco Use Types Packs/Day Years Used Date Never Assessed Sex Assigned at Date Recorded Not on file Obstetrics History Last Filed Vital Signs Vital Sign Reading Time Taken Comments Blood Pressure 136/96 06/09/2015 7:13 AM CDT Pulse 82 06/09/2015 7:13 AM CDT Temperature 36.6 ??C (97.8 ??F) 06/09/2015 7:13 AM CDT Respiratory Rate 16 06/09/2015 7:13 AM CDT Oxygen Saturation 94% 08/31/2014 12:45 PM CDT Inhaled Oxygen Concentration - - Weight 104.3 kg (230 lb) 01/06/2015 6:53 AM HUMAN INSIGHTS LEAD ADS MARKETING Height 165.1 cm (5' 5) 01/06/2015 6:53 AM HUMAN INSIGHTS LEAD ADS MARKETING Body Mass Index 38.27 01/06/2015 6:53 AM HUMAN INSIGHTS LEAD ADS MARKETING Plan of Treatment Health Maintenance Due Date Last Done Comments COVID-19 vaccine series (#1) 1965 Tdap 1974 Depression screening for age 12+ 1975 BMI (ht and wt on same day) for 1981 age 18+ Hepatitis C screening for age 0205/01/1981 18-79 Tetanus booster 1983 Colonoscopy through age 75 2008 Lipids for age 45-75 2008 Mammogram for age 45-75 07/03/2008 07/04/2007 Zoster (shingles) series for age 0205/01/2013 50+ (1 of 2) Pap test for age 21-65 06/06/2020 06/06/2017, 06/06/2017, 07/28/2014, Additional history exists Influenza for age 50-64 11/03/2021 Medical Devices Implanted Type Area Radiopharmacist Device Shelf Model / Identifier Expiration Serial / Date Lot [id number] 700cc Memorygel Rnd High Smooth Silcn [[id number]] Right: [employer] 11/02/2018 [id number] / Implanted: Qty: 1 on 08/31/2014 at [facility] Breast 12Bis [id number] / [id number] Results Not on filefrom Last 3 Months Insurance Payer Benefit Plan / Subscriber ID Effective Dates Phone Addre ss Type Group [employer] [place] [employer] [id number] 2004-Present [address] [place] [address] [phone] [place] [address] (Home) BL [phone] ALLYSSA LEBLANC [phone] 1 (Work) Advance Directives Latest Code Status on File Code Status Date Activated Date Inactivated Comments Full Code 06/09/2015 7:43 AM 06/09/2015 10:20 AM Full Code 01/06/2015 7:15 AM 01/06/2015 10:12 AM Full Code 08/31/2014 10:21 AM 08/31/2014 3:53 PM Full Code 08/31/2014 8:02 AM 08/31/2014 10:21 AM Care Teams Concrete Boom Operator Relationship Specialty Start Date End Date Thuy Ritchie MD PCP - General Family Practice 06/04/[address] [place] [id number]
== END 2021-12-14 15:33 | disposition home or self-care (01) ==
PROVIDERS: Emergency Provider Family Medicine; PCP Family Medicine
DX: S40.212A Abrasion of left shoulder, initial encounter (principal); S50.312A Abrasion of left elbow, initial encounter; S60.312A Abrasion of left thumb, initial encounter; V19.3XXA Pedal cyclist (driver) (passenger) injured in unspecified nontraffic accident, initial encounter
CPT/HCPCS: 29130; 73030; 73140; 99284

== ENCOUNTER 2022-01-30 09:41 | Outpatient (CLI) | payer BC, SELFPAY ==
--- OUTSIDE RECORDS SUMMARY | 2022-01-30 08:15 | XMS_ITS | Encounter Summary ---
:1965 Author Organization [facility] Address [address] [place] [address] Care Team Providers Name Role Phone Unavailable Primary Care Provider Unavailable Reason for Visit Reason Comments Biopsy Outpatient (Routine) - Closed Specialty Diagnoses / Procedures Referred By Contact Refer red To Contact Dermatology Diagnoses Tumor Skin Uncertain Behavior Estelita Szymanski M.D. [facility] Region Procedures Dermatology mis minor procedure [address] [place] [address] Referral ID Status Reason Start Date Expiration Date Visits Requ ested Visits Authorized [id number] Closed 09/01/2019 08/31/2020 1 1 Encounter Details Date Type Department Care Team Description 10/07/2019 Procedure visit Department of Estelita Szymanski Tumor Skin Uncertain Dermatology in Renny Harris M.D. [place], [place] [address] [phone] Social History Tobacco Use Types Packs/Day Years [...] or relatives? How often do you attend rastafarian or More than 4 times per year 05/30/2021 yazdanism services? Do you belong to any clubs or Yes 05/30/2021 organizations such as rastafarian groups, unions, fraternal or athletic groups, or [...] place to sleep or slept in a jail (including now)? Education Answer Date Recorded What [...] curettage and cryotherapy on 06/26/17 at the [facility] 3. SCC in situ involving central sternum [...] the patient by letter. Patient given pamphlet [id number]. PATIENT EDUCATION: Ready to learn. No apparent [...] City/State/ZIP Code Phon e Number [facility] - [address] [place], [place] [address] [facility] [place] [address] [facility] [address] [...]
--- OUTSIDE RECORDS SUMMARY | 2022-01-30 08:15 | XMS_ITS | Encounter Summary ---
:1965 Author Organization [facility] Address [address] [place] [id number] Care Team Providers Name Role Phone Unavailable Primary Care Provider Unavailable Reason for Referral Outpatient (Routine) - Closed Specialty Diagnoses / Procedures Referred By Contact Refer red To Contact Dermatology Diagnoses Tumor Skin Uncertain Behavior Estelita Szymanski M.D. [facility] Procedures Dermatology misc minor procedure [address] [place] [phone] Referral ID Status Reason Start Date Expiration Date Visits Requ ested Visits Authorized [id number] Closed 09/01/2019 08/31/2020 1 1 Reason for Visit Reason Comments Follow-up 2 months Outpatient (Routine) - Closed Specialty Diagnoses / Procedures Referred By Contact Refer red To Contact Dermatology Estelita Szymanski M.D . [facility] [address] [place] [phone] Referral ID Status Reason Start Date Expiration Date Visits Requ ested Visits Authorized [id number] Closed 03/18/2019 03/17/2020 1 1 Encounter Details Date Type Department Care Team Description 09/01/2019 Office Visit Department of Estelita Szymanski, Tumor Skin Uncertain Dermatology in [facility] Behavior (Primary Dx) [place], [place] [address] [phone] Social History Tobacco Use Types Packs/Day Years [...] More than 4 times per year 05/30/2021 orthodox services? Do you belong to any clubs [...]
--- OUTSIDE RECORDS SUMMARY | 2022-01-30 08:15 | XMS_ITS | Encounter Summary ---
:1965 Author Organization [facility] Address [address] [place] [address] Care Team Providers Name Role Phone Unavailable Primary Care Provider Unavailable Reason for Visit Reason Comments Skin Check Appointment Request (Routine) - Closed Specialty Diagnoses / Procedures Referred By Contact Refer red To Contact Dermatology Referral ID Status Reason Start Date Expiration Date Visits Requ ested Visits Authorized [id number] Closed 01/16/2019 01/16/2020 1 1 Encounter Details Date Type Department Care Team Description 01/20/2019 Office Visit Department of Estelita Szymanski, Tumor Skin Uncertain Behavior (Primary Dx); Dermatology in [place] Nevi Multiple; [place], [place] [address] [facility] Keratosis Seborrheic; [address] [place] [address] Cancer Skin Squamous Cell Pe rsonal History; [place] [address] Granuloma Annulare [phone] Social History Tobacco Use Types Packs/Day Years [...] or relatives? How often do you attend temple or More than 4 times per year 05/30/2021 mormon services? Do you belong to any clubs or Yes 05/30/2021 organizations such as temple groups, unions, fraternal or athletic groups, or [...] place to sleep or slept in a custodial (including now)? Sex Assigned at Date Recorded [...] status post curettage and cryotherapy at the [facility] on 06/26/17. She denies a [...] curettage and cryotherapy on 06/26/17 at the [facility] 2. Invasive ductal carcinoma in situ involving [...] extremities. My nurse (Luna) served as a coremaker supervisor for the entirety of the exam. Examination [...] curettage and cryotherapy on 06/26/17 at the [facility] No clinical evidence of local recurrence today. [...] Signed: marla Valadez. 01/20/2019. 9:15 AM. Estelita Fuens M.D., personally performed the services described in this documentation. All medical record entries made by the scribe were at my direction and in my presence. I have reviewed the chart and discharge instructions (if applicable) and agree that the record reflects my personal performance and is accurate and complete. Estelita Szymanski M.D. . 01/20/2019. 10:47 AM. SERVICE DEMONSTRATOR documented in this encounter Plan of Treatment [...]
--- OUTSIDE RECORDS SUMMARY | 2022-01-30 08:15 | XMS_ITS | Encounter Summary ---
:[address] [facility] Address [address] [place] [address] Care Team Providers Name Role Phone Unavailable [...] or relatives? How often do you attend worship or More than 4 times per year 05/30/2021 zoroastrian services? Do you belong to any clubs or Yes 05/30/2021 organizations such as worship groups, unions, fraternal or athletic groups, or [...] place to sleep or slept in a halfway (including now)? Education Answer Date Recorded What [...]
--- OUTSIDE RECORDS SUMMARY | 2022-01-30 08:15 | XMS_ITS | Encounter Summary ---
:1965 Author Organization [facility] Address [address] [place] [address] Care Team Providers Name Role Phone Unavailable [...] or relatives? How often do you attend orthodox or More than 4 times per year 05/30/2021 hoahaoism services? Do you belong to any clubs or Yes 05/30/2021 organizations such as orthodox groups, unions, fraternal or athletic groups, [...] 9:19 AM Resu lts for this EXAM TELEVISION NEWSCAST DIRECTOR procedure are i n the results section. documented in this encounter Results upper extremity, left anterior forearm 305-Dermatology Image Exam (01/20/2019 9:19 AM TELEVISION NEWSCAST DIRECTOR) Specimen (Source) Anatomical Collection Method Collection Time Re ceived Time Location / / Volume Laterality 01/20/2019 9:17 AM TELEVISION NEWSCAST DIRECTOR Narrative [facility] - 01/20/2019 9:19 AM TELEVISION NEWSCAST DIRECTOR This order has been created and auto-finalized [...]
--- OUTSIDE RECORDS SUMMARY | 2022-01-30 08:15 | XMS_ITS | Encounter Summary ---
:1965 Author Organization [facility] Address [address] [place] [address] Care Team Providers Name Role Phone Unavailable Primary Care Provider Unavailable Reason for Referral Outpatient (Routine) - Closed Specialty Diagnoses / Procedures Referred By Contact Refer red To Contact Dermatology Estelita Szymanski M.D . [facility] Region [address] [place], [place] [phone] Referral ID Status Reason Start Date Expiration Date Visits Requ ested Visits Authorized [id number] Closed 02/04/2019 02/04/2020 1 1 Scheduling Instructions Please schedule SundayMarch 18 at 11:15 a.m. TRIPPER Reason for Visit Reason Comments Biopsy Encounter Details Date Type Department Care Team Description 02/04/2019 Procedure visit Department of Estelita Szymanski Tumor Skin Uncertain Behavior (Primary Dx); Dermatology in [place]enny Harris M.D. Tumor Ear Skin Uncertain Behavior; [place], [place] [address] [facility] Pityriasis Versicolor; [address] [place] [phone] Social History Tobacco Use Types Packs/Day Years [...] More than 4 times per year 05/30/2021 sabianism services? Do you belong to any clubs [...] place to sleep or slept in a retirement (including now)? Sex Assigned at Date Recorded [...] status post curettage and cryotherapy at the [facility] on 06/26/17. She denies a personal or family history for melanoma. The patient uses sunscreen (SPF 30+). She has no other concerns today. Allergies Allergen Reactions ??? Hydrocodone-Acetaminophen Hives and Itching PAST MEDICAL HISTORY 1. 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 Invasive ductal carcinoma in [...] the patient by letter. Patient given pamphlet [id number]. Discussed the risks, benefits, alternatives, and the [...] the patient by letter. Patient given pamphlet [id number]. Discussed the risks, benefits, alternatives, and the [...] the patient by letter. Patient given pamphlet [id number]. Discussed the risks, benefits, alternatives, and the [...] Estelita Szymanski M.D. . 02/04/2019. 11:12 AM. TRIPPER documented in this encounter Plan of Treatment [...] 10:31 Tumor Skin Results for this AM DIE TRIPPER Uncertain Behavi or procedure are in Tumor Ear Skin the results Uncertain Behavior section. documented in this encounter Results Dermatopathology Consult (02/04/2019 10:31 AM DIE TRIPPER) Component Value Ref Test Analysis Performed Pathologis t Range Method Time At Signature 02/10/2019 PDRM 4:11 PM DIE TRIPPER Report Leslie N. 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 ??DermPath Consult Wet Tissue; Right mid [...] Laterality Tissue 02/04/2019 10:31 02/05/2019 8:24 AM DIE TRIPPER AM DIE TRIPPER Narrative This result has an attachment that is no t available. Estelita Szymanski M.D. LAB PATH DERM ORDERABLES Performing Organization Address City/State/ZIP Code Phon e Number [facility] - [address] [place], [place] [address] [facility] [place] [place] [address] Laboratories-[facility] [address] documented in [...]
--- OUTSIDE RECORDS SUMMARY | 2022-01-30 08:15 | XMS_ITS | Encounter Summary ---
:1965 Author Organization [facility] Address [address] [place] [address] Care Team Providers Name Role Phone Unavailable Primary Care Provider Unavailable Reason for Referral Outpatient (Routine) - Authorized Specialty Diagnoses / Procedures Referred By Contact Refer red To Contact Diagnoses Tumor Skin Uncertain Behavior Estelita Szymanski M.D. [facility] Region Procedures GABRIELE Suture removal [address] [place] [address] Referral ID Status Reason Start Date Expiration Date Visits V isits Requested Authorized [id number] Authorized 07/26/2021 07/26/2022 1 1 utpatient (Routine) - Authorized Specialty Diagnoses / Procedures Referred By Contact Refer red To Contact Dermatology Diagnoses Tumor Skin Uncertain Behavior Estelita Szymanski M.D. [facility] Region [address] [place] [address] Referral ID Status Reason Start Date Expiration Date Visits V isits Requested Authorized [id number] Authorized 07/26/2021 07/26/2022 1 1 Scheduling Instructions Please schedule for suture removal of le ft upper paraspinal back on either 08/08/21 or 08/09/21, thanks! Reason for Visit Reason Comments Biopsy Outpatient (Routine) - Closed Specialty Diagnoses / Procedures Referred By Contact Refer red To Contact Dermatology Diagnoses Nevi Multiple Estelita Szymanski M.D. [facility] Region Procedures Dermatology misc minor procedure [address] [place], [place] [phone] Referral ID Status Reason Start Date Expiration Date Visits Requ ested Visits Authorized [id number] Closed 06/06/2021 06/06/2022 1 1 Encounter Details Date Type Department Care Team Description 07/26/2021 Procedure visit Department of Estelita Szymanski Tumor Skin Uncertain Behavior (Primary Dx); Dermatology in Renny Harris M.D. Nevi [place], [place] [address] [phone] Social History Tobacco Use Types Packs/Day [...] More than 4 times per year 05/30/2021 voodoo services? Do you belong to any clubs [...] the patient by letter. Patient given pamphlet [id number]. Discussed the risks, benefits, alternatives, and the [...] Component Value Ref Test Analysis Performed At [facility] Range Method Time Signature 08/03/2021 PDR 2:56 PM CDT Participated in Yoanna 08/03/2021 [facility] the Interpretation Carlos, 2:56 PM CDT Yumiko-Patholog y Fellow Report Toya Peng 08/03/2021 [facility] electronically Yumiko Hamm 2:56 PM CDT signed by Gross Description: Received in formalin labeled with the patient's name, 08/03/2021 [facility] medical record number, and left upper [...] ??Grossed by CAROLW. Interpetation FINAL DIAGNOSIS 08/03/2021 [facility] A. ??DermPath Consult Wet Tissue; Left [...] Organization Address City/State/ZIP Code Phon e Number [facility] - [address] [place], [place] [address] [place] [address] Laboratories-[facility] [address] documented in this encounter Visit Diagnoses Diagnosis Tumor Skin Uncertain Behavior - Primary Nevi Multiple documented in this encounter
--- OUTSIDE RECORDS SUMMARY | 2022-01-30 08:15 | XMS_ITS | Encounter Summary ---
:1965 Author Organization [facility] Address [address] [place] [address] Care Team Providers Name Role Phone Unavailable Primary Care Provider Unavailable Encounter Details Date Type Department Care Team Description 02/20/2019 Orders Only Department of Dermatology in Estelita Parikh M.D. [facility] [address] [facility] [address] [place], [place] [phone] (Wo rk) Social History Tobacco Use Types [...] More than 4 times per year 05/30/2021 yazidism services? Do you belong to any clubs [...] place to sleep or slept in a prison (including now)? Sex Assigned at Date Recorded Female 05/30/2021 11:58 AM CDT documented as of this encounter Plan of Treatment Not on filedocumented as of this encounter Visit Diagnoses Not on filedocumented in this encounter
--- OUTSIDE RECORDS SUMMARY | 2022-01-30 08:15 | XMS_ITS | Encounter Summary ---
:1965 Author Organization [facility] Address [address] [place] [address] Care Team Providers Name Role Phone Unavailable [...] or relatives? How often do you attend latter-day or More than 4 times per year 05/30/2021 jewish services? Do you belong to any clubs or Yes 05/30/2021 organizations such as latter-day groups, unions, fraternal or athletic groups, or [...] or slept in a detention (including now)? Education Answer Date Recorded What [...]
--- OUTSIDE RECORDS SUMMARY | 2022-01-30 08:15 | XMS_ITS | Encounter Summary ---
:1965 Author Organization [facility] Address [address] [place] [address] Care Team Providers Name Role Phone Unavailable Primary Care Provider Unavailable Encounter Details Date Type Department Care Team Description 02/17/2019 Procedure visit Department of Estelita Szymanski M.D. [address] [place] [address] Tumor Skin Uncertain Dermatology in Renny BowmanMargaret, LMeghanPMeghanN. Behavior ([place], [place] Dx) [address] [phone] Social History Tobacco Use Types [...] or relatives? How often do you attend religious or More than 4 times per year 05/30/2021 druze services? Do you belong to any clubs or Yes 05/30/2021 organizations such as religious groups, unions, fraternal or athletic groups, or [...] or slept in a jail (including now)? 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 documented in this encounter Results SUTURE REMOVAL (02/17/2019 8:30 AM ETHANOL MAINTENANCE MECHANIC) Narrative MMODAL - 02/17/2019 8:30 AM ETHANOL MAINTENANCE MECHANIC Margaret Bowman L.P.N. ? 02/17/2019 ??8:30 AM Suture Removal Date/Time: 02/17/2019 8:28 AM Performed by: Margaret Bwoman L.PMeghanN Meghan Authorized by: Estelita Szymanski M.D. [...]
--- OUTSIDE RECORDS SUMMARY | 2022-01-30 08:15 | XMS_ITS | Encounter Summary ---
:1965 Author Organization [facility] Address [address] [place] [address] Care Team Providers Name Role Phone Unavailable Primary Care Provider Unavailable Encounter Details Date Type Department Care Team Description 08/04/2021 Clinical Communication Department of Estelita Szymanski, Dermatology in M.D. [place], [place] [address] [facility] [address] [place] [phone] Social History Tobacco Use Types Packs/Day Years [...] or relatives? How often do you attend tenriism or More than 4 times per year 05/30/2021 evangelical services? Do you belong to any clubs or Yes 05/30/2021 organizations such as tenriism groups, unions, fraternal or athletic groups, or [...] or slept in a mcc (including now)? Education Answer Date Recorded What [...] that done in our Procedure Clinic at [facility]. I told her that a letter would be generated on the portal for her tomorrow by my unit secretary. She should go on and once she sees the letter, call derm scheduling in [place] to have that surgical appointment scheduled. I also discussed what to expect with the procedure. She was appreciative of the phone call, and all questions answered. Estelita Szymanski M.D. CT CT Job ID: [id number] documented in this encounter Plan of Treatment Not on filedocumented as of this encounter Visit Diagnoses Not on filedocumented in this encounter
--- OUTSIDE RECORDS SUMMARY | 2022-01-30 08:15 | XMS_ITS | Encounter Summary ---
:1965 Author Organization [facility] Address [address] [place] [address] Care Team Providers Name Role Phone Unavailable Primary Care Provider Unavailable Reason for Referral Outpatient (Routine) - Closed Specialty Diagnoses / Procedures Referred By Contact Refer red To Contact Diagnoses Nevus Atypical Estelita Szymanski M.D. [facility] Procedures GABRIELE Excision 1-2 sites [address] [place] [phone] Referral ID Status Reason Start Date Expiration Date Visits Requ ested Visits Authorized [id number] Closed 08/05/2021 08/05/2022 1 1 Encounter Details Date Type Department Care Team Description 08/05/2021 Orders Only Department of Estelita Szymanski, Nev Atyp ical (Primary Dermatology in M.D. Dx) [place], [place] [address] [place] [address] [place] [phone] Social History Tobacco Use Types Packs/Day Years [...] or relatives? How often do you attend zoroastrianism or More than 4 times per year 05/30/2021 protestant services? Do you belong to any clubs or Yes 05/30/2021 organizations such as zoroastrianism groups, unions, fraternal or athletic groups, or [...] place to sleep or slept in a alf (including now)? Education Answer Date Recorded What [...]
--- OUTSIDE RECORDS SUMMARY | 2022-01-30 08:15 | XMS_ITS | Encounter Summary ---
:1965 Author Organization [facility] Address [address] [place] [address] Care Team Providers Name Role Phone Unavailable Primary Care Provider Unavailable Reason for Referral Outpatient (Routine) - Closed Specialty Diagnoses / Procedures Referred By Contact Refer red To Contact Dermatology Diagnoses Nevalfonzo Multiple Estelita Szymanski M.D. [facility] Procedures Dermatology misc minor procedure [address] [place] [address] Referral ID Status Reason Start Date Expiration Date Visits Requ ested Visits Authorized [id number] Closed 06/06/2021 06/06/2022 1 1 Reason for Visit Reason Comments Skin Check Encounter Details Date Type Department Care Team Description 06/06/2021 Office Visit Department of Estelita Szymanski Nevi Multi ple (Primary Dx); Dermatology in Renny Calderon [place], [place] [address] [phone] [phone] Social History Tobacco Use Types Packs/Day Years [...] or relatives? How often do you attend religion or More than 4 times per year 05/30/2021 episcopal services? Do you belong to any clubs or Yes 05/30/2021 organizations such as religion groups, unions, fraternal or athletic groups, or [...] extremities. My nurse (Gus) served as a box toe flanger stitchdowns for the entirety of the exam. Examination [...]
--- OUTSIDE RECORDS SUMMARY | 2022-01-30 08:15 | XMS_ITS | Encounter Summary ---
:1965 Author Organization [facility] Address [address] [place] [address] Care Team Providers Name Role Phone Unavailable [...] or relatives? How often do you attend pentecostalism or More than 4 times per year 05/30/2021 christianity services? Do you belong to any clubs or Yes 05/30/2021 organizations such as pentecostalism groups, unions, fraternal or athletic groups, or [...] 9:19 AM Resu lts for this EXAM ENTREPRENEURSHIP PROGRAM DIRECTOR procedure are i n the results section. documented in this encounter Results Back right 50 224 226 228-Dermatology Image Exam (01/20/2019 9:19 AM ENTREPRENEURSHIP PROGRAM DIRECTOR) Specimen (Source) Anatomical Collection Method Collection Time Re ceived Time Location / / Volume Laterality 01/20/2019 9:17 AM ENTREPRENEURSHIP PROGRAM DIRECTOR Narrative IIMS - 01/20/2019 9:19 AM ENTREPRENEURSHIP PROGRAM DIRECTOR This order has been created and [...]
--- OUTSIDE RECORDS SUMMARY | 2022-01-30 08:15 | XMS_ITS | Encounter Summary ---
:1965 Author Organization [facility] Address [address] [place] [address] Care Team Providers Name Role Phone Unavailable Primary Care Provider Unavailable Reason for Referral Outpatient (Routine) - Closed Specialty Diagnoses / Procedures Referred By Contact Refer red To Contact Dermatology Estelita Szymanski M.D . 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 [address] [address] Referral ID Status Reason Start Date Expiration Date Visits Requ ested Visits Authorized [id number] Closed 02/04/2019 02/04/2020 1 1 Encounter Details Date Type Department Care Team Description 03/18/2019 Office Visit Department of Estelita Szymanski Squamous C ell Dermatology in Renny Calderon Carcinoma In Situ [address] (Primary Dx) [address] [phone] Social History Tobacco Use Types Packs/Day Years [...] or relatives? How often do you attend nondenominational or More than 4 times per year 05/30/2021 pentecostalism services? Do you belong to any clubs or Yes 05/30/2021 organizations such as nondenominational groups, unions, fraternal or athletic groups, or [...] place to sleep or slept in a assisted (including now)? Education Answer Date Recorded What [...] patient/guardian of patient expressed understanding of thecontent. 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
--- OUTSIDE RECORDS SUMMARY | 2022-01-30 08:15 | XMS_ITS | Encounter Summary ---
:1965 Author Organization [facility] Address [address] [place] [address] Care Team Providers Name Role Phone Unavailable Primary Care Provider Unavailable Encounter Details Date Type Department Care Team Description 02/20/2019 Clinical Communication Department of Estelita Szymanski, Dermatology in .D. [place], [place] [address] [facility] [address] [place] [phone] Social History Tobacco Use Types Packs/Day Years [...] or relatives? How often do you attend holiness or More than 4 times per year 05/30/2021 gnosticism services? Do you belong to any clubs or Yes 05/30/2021 organizations such as holiness groups, unions, fraternal or athletic groups, or [...] slept in a long term (including now)? Sex Assigned at Date Recorded [...] Estelita Szymanski M.D. CT CT Job ID: [id number] LOADER documented in this encounter Plan of Treatment Not on filedocumented as of this encounter Visit Diagnoses Not on filedocumented in this encounter
--- OUTSIDE RECORDS SUMMARY | 2022-01-30 08:15 | XMS_ITS | Encounter Summary ---
:1965 Author Organization [facility] Address [address] [place] [address] Care Team Providers Name Role Phone Unavailable Primary Care Provider Unavailable Reason for Visit Outpatient (Routine) - Closed Specialty Diagnoses / Procedures Referred By Contact Refer red To Contact Diagnoses Nevus Atypical Estelita Szymanski M.D. [facility] Procedures GABRIELE Excision 1-2 sites [address] [place] [phone] Referral ID Status Reason Start Date Expiration Date Visits Requ ested Visits Authorized [id number] Closed 08/05/2021 08/05/2022 1 1 Encounter Details Date Type Department Care Team Description 10/21/2021 Procedure visit Department of Dermatology Bonnie Romero, Nevus Atypical in [facility] stephanie Calderon [address] [facility] [address] [place] [address] [place], [place] [phone] Social History Tobacco Use Types Packs/Day Years [...] or relatives? How often do you attend jainism or More than 4 times per year 05/30/2021 nondenominational services? Do you belong to any clubs or Yes 05/30/2021 organizations such as jainism groups, unions, fraternal or athletic groups, or [...] place to sleep or slept in a fdc (including now)? Education Answer Date Recorded What [...] Surgery: 10/21/2021 Surgeon: Dr. Justino Chatterjee M.D. Retail Event Assistant: Dr. Amarilys Romero M.D. Retail Event Assistant: Dr. Royce Escobar M.D. Location: [facility] Floor:16 Room:[facility] Visit Type: Outpatient PostOp Diagnosis: severely atypical [...] t Range Method Time At Signature 10/26/2021 [facility] 5:19 PM CDT Report Eloy Lovelace 10/26/2021 FAZAL electronically Yumiko Cota 5:19 PM signed by CDT Gross Description Received in formalin labeled with the patient's samuel farmer, 10/26/2021 [facility] medical identification number, and skin excision left 5:19 PM upper paraspinal back is a 4.5 x 1.5 cm unoriented CDT pink-lisa skin ellipse excised to a depth of 0.9 cm with an eccentrically located 1.0 x 0.6 cm scar, 0.1 cm from the resection margin (inked black). Audiovisual Aids Technician sections are submitted in 3 cassettes labeled A1-A3 as follows: A1: Tips A2-A3: Scar, entirely Grossed by Liudmila FRIED(ASCP) Interpretation FINAL DIAGNOSIS 10/26/2021 [facility] A. 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
--- OUTSIDE RECORDS SUMMARY | 2022-01-30 08:15 | XMS_ITS | Encounter Summary ---
:1965 Author Organization [facility] Address [address] [place] [address] Care Team Providers Name Role Phone Unavailable [...] More than 4 times per year 05/30/2021 sabianist services? Do you belong to any clubs [...]
--- OUTSIDE RECORDS SUMMARY | 2022-01-30 08:15 | XMS_ITS | Encounter Summary ---
:1965 Author Organization [facility] Address [address] [place] [address] Care Team Providers Name Role Phone Unavailable [...] More than 4 times per year 05/30/2021 islam services? Do you belong to any clubs [...] 9:19 AM Resu lts for this EXAM DRY HOUSE TENDER procedure are i n the results section. documented in this encounter Results sternum 201-Dermatology Image Exam (01/20/2019 9:19 AM DRY HOUSE TENDER) Specimen (Source) Anatomical Collection Method Collection Time Re ceived Time Location / / Volume Laterality 01/20/2019 9:17 AM DRY HOUSE TENDER Narrative IIMS - 01/20/2019 9:19 AM DRY HOUSE TENDER This order has been created and auto-finalized [...]
--- OUTSIDE RECORDS SUMMARY | 2022-01-30 08:15 | XMS_ITS | Clinical Summary ---
:1965 Author Organization [facility] Address [address] [place] [address] Care Team Providers Name Role Phone Unavailable Primary Care Provider Unavailable Source Comments Patient records contain information from all sites at [facility]. For routine questions regarding patient records, call [phone] during business hours, M-F 8:00 AM - 5:00 PM Central Time. Record requests for emergency care only can be directed to [phone] at any time.[facility] Allergies Active Allergy Reactions Severity Noted [...] Active (HYDRODIURIL) 12.5 mg mouth daily. tablet Family History Medical History Relation Name Comments [...] 05/30/2021 organizations such as jew groups, unions, fraClan of the Cloud or athletic groups, or school groups? How [...] place to sleep or slept in a nursing home (including now)? Education Answer Date Recorded [...] 06/06/2020 06/06/2017 Depression Screening 03/05/2021 (Annual PHQ-2) DTaP,Tdap,and Td Vaccines 03/29/2024 03/29/2014, 03/24/2014 , (3 - Td or Tdap) 11/08/2002 Zoster Vaccines Completed 06/22/2021, 03/17/2020 Influenza Vaccine Completed 01/01/2022, 01/17/2021, 12/28/2019, Additional history exists COVID-19 Vaccine Completed 01/14/2022, 09/25/2021, 01/03/2021, Additional history exists Pneumococcal vaccine (0-64 Aged Out No lo nger eligible years) based on patient 's age to complete this topic Insurance Payer Benefit Plan Subscriber ID Effective Dates Phone Address Type / Group [facility] [id number] 2019-Pres [phone] [address] [address] PPO [facility] [address] [place] [address] [phone] [place] [address] (Home) ALLYSSA Freed [phone]
--- OUTSIDE RECORDS SUMMARY | 2022-01-30 08:16 | XMS_ITS | Encounter Summary ---
:1965 Author Organization [facility] Address [address] [place] [address] Care Team Providers Name Role Phone Unavailable Primary Care Provider Unavailable Reason for Visit Reason Comments Skin Check Encounter Details Date Type Department Care Team Description 10/02/2017 Office Visit Department of Estelita Szymanski, Lesion Miranda n (Primary Dx); Dermatology in [place] [facility]on Cancer Skin Squamous Cell Personal Histo ry; [place], [place] [address] [facility] Keratosis Seborrheic; [address] [place] [address] [place] [phone] Social History Tobacco Use Types Packs/Day Years [...] or relatives? How often do you attend adventism or More than 4 times per year 05/30/2021 yarsanism services? Do you belong to any clubs or Yes 05/30/2021 organizations such as adventism groups, unions, fraternal or athletic groups, or [...] place to sleep or slept in a intermediate (including now)? Sex Assigned at Date Recorded [...] treated with curettage and cryotherapy at the [facility] on 06/26/17. She reports she is healing [...]
--- OUTSIDE RECORDS SUMMARY | 2022-01-30 08:16 | XMS_ITS | Encounter Summary ---
:1965 Author Organization [facility] Address [address] [place] [address] Care Team Providers Name Role Phone Unavailable Primary Care Provider Unavailable Reason for Visit Reason Comments Skin Check Outpatient (Routine) - Closed Specialty Diagnoses / Procedures Referred By Contact Refer red To Contact Dermatology Estelita Szymanski M.D . [facility] Region [address] [place] [address] Referral ID Status Reason Start Date Expiration Date Visits Requ ested Visits Authorized [id number] Closed 11/06/2017 11/06/2018 1 1 Encounter Details Date Type Department Care Team Description 01/14/2018 Office Visit Department of Estelita Szymanski, Keratosis Actinic (Primary Dx); Dermatology in [place] Calderon Nevi Multiple; [place], [place] [address] [facility] Keratosis Seborrheic; [address] [place] [address] Cancer Skin Squamous [place] [phone] Social History Tobacco Use Types Packs/Day Years [...] or relatives? How often do you attend gnosticism or More than 4 times per year 05/30/2021 confucianism services? Do you belong to any clubs or Yes 05/30/2021 organizations such as gnosticism groups, unions, fraternal or athletic groups, or [...] thigh treated withcurettage and cryotherapy at the [facility] on 06/26/17. During her last visit [...] Estelita Szymanski M.D. . 01/14/2018. 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
--- OUTSIDE RECORDS SUMMARY | 2022-01-30 08:16 | XMS_ITS | Encounter Summary ---
:1965 Author Organization [facility] Address [address] [place] [address] Care Team Providers Name Role Phone Unavailable Primary Care Provider Unavailable Reason for Referral Outpatient (Routine) - Closed Specialty Diagnoses / Procedures Referred By Contact Refer red To Contact Dermatology Estelita Szymanski M.D . 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 [place], [place] [address] [phone] Social History Tobacco Use Types Packs/Day Years [...] place to sleep or slept in a penitentiary (including now)? Sex Assigned at Date Recorded [...] treated with curettage and cryotherapy at the [facility] on 06/26/17. During her last visit here [...]
--- OUTSIDE RECORDS SUMMARY | 2022-01-30 08:16 | XMS_ITS | Clinical Summary ---
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 Height 165.1 cm (5' 5) 01/06/2015 6:53 AM COMPRESSOR ENGINEER Body Mass Index 38.27 01/06/2015 6:53 AM COMPRESSOR ENGINEER Plan of Treatment Health Maintenance Due Date Last Done Comments COVID-19 vaccine series (#1) 1965 Tdap 1974 Depression screening for age 12+ 1975 HIV for age 15-65 1978 BMI (ht and wt on same day) [...] 50-64 11/03/2021 Medical Devices Implanted Type Area Public Health Sanitarian Technician Device Shelf Model / Identifier Expiration Serial / Date Lot [id number] 700cc Memorygel Rnd High Smooth Silcn [[id number]] Right: [employer] 11/02/2018 [id number] / Implanted: Qty: 1 on 08/31/2014 at [facility] Breast [employer] [id number] / [id number] Results Not on filefrom Last 3 Months Insurance Payer Benefit Plan / Subscriber ID Effective Dates Phone Addre ss Type Group [employer] [place] [employer] [id number] 2004-Present [address] [place] [address] [phone] [place] [address] (Home) BL [phone] ALLYSSA LEBLANC [phone] 1 (Work) Advance Directives Latest Code Status on File Code Status Date Activated Date Inactivated Comments Full Code 06/09/2015 7:43 AM 06/09/2015 10:20 AM Full Code 01/06/2015 7:15 AM 01/06/2015 10:12 AM Full Code 08/31/2014 10:21 AM 08/31/2014 3:53 PM Full Code 08/31/2014 8:02 AM 08/31/2014 10:21 AM Care Teams Software Systems Architect Relationship Specialty Start Date End Date Thuy Ritchie MD PCP - General Family Practice 06/04/151999 [facility] [id number]
[2022-01-30 11:35] LABS: Albumin* 4.2 g/dL (3.3-5.0)
[2022-01-30 11:36] LABS: Chloride* 108 mmol/L (96-114); Sodium* 142 mmol/L (135-149)
[2022-01-30 11:38] LABS: Aspartate Amino Transferase* 18 U/L (12-35); Bilirubin Total* 0.3 mg/dL (0.1-1.5); Blood Urea Nitrogen* 17 mg/dL (7-30); Carbon Dioxide* 28 mmol/L (20-32); Cholesterol* 188 mg/dL (90-199); Creatinine* 0.6 mg/dL (0.5-1.5); Estimated Glomerular Filt Rate 104 ml/min; Total Protein* 6.9 g/dL (6.0-8.3)
[2022-01-30 11:39] LABS: Alanine Aminotransferase* 18 U/L (4-35); Alkaline Phosphatase* 65 U/L (40-150); Calcium* 9.2 mg/dL (8.4-10.6); Glucose* 102 mg/dL (60-115); HDL Cholesterol* 53 mg/dL (>=50); LDL Cholesterol Calculated 92 mg/dL (<100); Triglycerides* 213 mg/dL (40-149)
== END 2022-01-30 09:42 | disposition home or self-care (01) ==
PROVIDERS: PCP Family Medicine; Visit Provider Family Medicine
DX: Z01.419 Encounter for gynecological examination (general) (routine) without abnormal findings (principal); E03.9 Hypothyroidism, unspecified; I10 Essential (primary) hypertension; Z13.6 Encounter for screening for cardiovascular disorders
CPT/HCPCS: 80053; 80061; 84443

== ENCOUNTER 2023-05-17 10:19 | Outpatient (CLI) | payer BC, SELFPAY | END 2023-05-17 10:20 | disposition home or self-care (01) | PROVIDERS: PCP Nurse Practitioner Family; Visit Provider Nurse Practitioner Family | DX: E78.1 Pure hyperglyceridemia (principal); I10 Essential (primary) hypertension; R30.0 Dysuria | CPT/HCPCS: 80053; 80061; 87086 ==

== ENCOUNTER 2023-07-19 06:34 | Outpatient (CLI) | payer BC, SELFPAY ==
--- OUTSIDE RECORDS SUMMARY | 2023-07-19 06:37 | XMS_ITS | Clinical Summary ---
Author Name Unknown Organization [facility] Address [address] [place] [address] Care Team Providers Care Etcher Enameling Name Role Phone Unavailable Primary Care Provider Unavailabl e Source Comments Patient records contain information from all sites at [facility]. For routine questions regarding patient records, call [phone] during business hours, M-F 8:00 AM - 5:00 PM Central Time. Record requests for emergency care only can be directed to [phone] at any time.[facility] Allergies Active Allergy Reactions Criticality Noted Date Comments Hydrocodone-Acetaminophen Hives (Reselec t Reaction),Itching 08/28/2014 Medications Medication Sig Dispensed Refills Start Date End Date Status hydroCHLOROthiazide (HYDRODIURIL) 25 mg tablet 08/29/2017 Active EPINEPHrine 0.1 mg/0.1 mL auto-injector by Injection route. Ac tive acetaminophen (TYLENOL) 500 mg capsule Take 500 mg by mouth. Active ibuprofen (ADVIL,MOTRIN) 200 mg tablet Take 200 mg by mouth. Active losartan (COZAAR) 25 mg tablet Take 25 mg by mouth daily. Active hydroCHLOROthiazide (HYDRODIURIL) 12.5 mg tablet Take 12.5 mg by mouth daily. 06/10/2021 Active Family History Medical History Relation Name Comments Squamous cell carcinoma Maternal Grandmother Relation Name Status Comments Maternal Grandmother Social History Tobacco Use Types Packs/Day Years Used Date Smoking Tobacco: Former Smokeless Tobacco: Never Humiliation, Afraid, Rape, and Kick questionnair e Answer Date Recorded Within the last year, have y ou been afraid of your partner or ex-partner? No 05/30/2021 Within the last year, have y ou been humiliated or emotionally abused in other ways by your partner or ex-partner? No Within the last year, have y ou been kicked, hit, slapped, or otherwise physically hurt by your partner or ex-partner? No 05/30/2021 Within the last year, have y ou been raped or forced to have any kind of sexual activity by your partner or ex-partner? No 05/30/2021 Social Connection and Isolat ion Panel [NHANES] Answer Date Recorded In a typical week, how many times do you talk on the phone with family, friends, or neighbors? More than three times a week 05/30/2021 How often do you get togethe r with friends or relatives? Twice a week 05/30/2021 How often do you attend chur ch or tenriism services? More than 4 times per year 05/30/2021 Do you belong to any clubs o r organizations such as mosque groups, unions, fraternal or athletic groups, or school groups? Yes 05/30/2021 How often do you attend meet ings of the clubs or organizations you belong to? More than 4 times per year 05/30/2021 Are you , , di vorced, , never , or living with a partner? 05/30/2021 AUDIT-C Answer Date Recorded Q1: How often do you have a drink containing alc ohol? 2-4 times a month 05/30/2021 Q2: How many drinks containi ng alcohol do you have on a typical day when you are drinking? 1 or 2 05/30/2021 Q3: How often do you have si x or more drinks on one occasion? Less than monthly 05/30/2021 Overall Financial Resource Strain (CARDIA) Answe r Date Recorded How hard is it for you to pa y for the very basics like food, housing, medical care, and heating? Not hard at all 05/30/2021 [facility] of Occupat ional Health - Occupational Stress Questionnaire Answer Date Recorded Do you feel stress - tense, restless, nervous, or anxious, or unable to sleep at night because your mind is troubled all the time - these days? Not at all 05/30/2021 Exercise Vital Sign Answer Date Recorde d On average, how many days pe r week do you engage in moderate to strenuous exercise (like a brisk walk)? 6 days 05/30/2021 On average, how many minutes do you engage in exercise at this level? 60 min 05/30/2021 Hunger Vital Sign Answer Date Recorded Within the past 12 months, y ou worried that your food would run out before you got the money to buy more. Never true 05/31/19 Within the past 12 months, t he food you bought just didn't last and you didn't have money to get more. Never true 05/30/2021 PRAPARE - Transportation Answer Date Re corded In the past 12 months, has l ack of transportation kept you from medical appointments or from getting medications? No 05/04 In the past 12 months, has l ack of transportation kept you from meetings, work, or from getting things needed for daily living? No 05/30/2021 Housing Stability Vital Sign Answer Ruslan e Recorded In the last 12 months, was t here a time when you were not able to pay the mortgage or rent on time? No 05/30/2021 In the last 12 months, how many places have you lived? 1 05/30/2021 In the last 12 months, was t here a time when you did not have a steady place to sleep or slept in a senior living (including now)? No 05/30/2021 Nutrition Answer Date Recorded Nutrition: EVOO Fat Source Yes 05/30 On average, how many serving s of fruits and vegetables do you eat per day (serving size is equal to 1 cup or approximately the size of a tennis ball)? 8 or more 05/30/2021 Dental Answer Date Recorded Dental: Regular Dentist Yes 05/31/19 Employment Answer Date Recorded Employment status Retired 05/30/2021 Education Answer Date Recorded What is the highest level of school you have completed or the highest degree you have received? Some college, no degree 03/14/2019 Sex and Gender Information Value Date Recorded Sex Assigned at Female 05/30/2021 11:58 AM CDT Gender Identity Female 05/30/2021 11:58 AM CDT Sexual Orientation Straight 05/30/2021 11 :58 AM CDT Last Filed Vital Signs Vital Sign Reading Time Taken Comments Blood Pressure 148/97 10/21/2021 1:57 PM CDT Pulse 77 10/21/2021 1:57 PM CDT Temperature - - Respiratory Rate - - Oxygen Saturation - - Inhaled Oxygen Concentration - - Weight - - Height - - Body Mass Index - - Plan of Treatment Upcoming Encounters Date Type Department Care Team (Late st Contact Info) Description 09/24/2023 11:00 AM CDT Office Visit Department of Dermatology in [address] [phone] Estelita Szymanski M.D. [address] [place] [address] Health Maintenance Due Date Last Done Comments CT Colonography 1965 Cologuard 1965 Colonoscopy 1965 Colorectal Cancer Screening 1965 Creatinine Level (Kidney Function Test) 1965 FIT 1963 Fasting Glucose for Diabetes Screening 1965 HIV Screening 1965 Hepatitis C Screening 1965 Lipid (Cholesterol) Screening 1965 Mammogram 1965 Potassium Level 1965 Sodium Level 1965 Cervical Cancer Screening 06/06/2020 06/06/2017 COVID-19 Vaccine ( season) 2022 01/14/2022, 09/25/2021, 01/03/2021, Additional history exists Depression Screening (Annual PHQ-2) 03/05/2023 DTaP,Tdap,and Td Vaccines (4 - Td or Tdap) 05/16/2033 05/17/2023, 03/29/2014, 03/24/2014, Additional history exists Zoster Vaccines Completed 06/22/2021, 03/17/2020 Influenza Vaccine Completed 02/27/2023, , 01/17/2021, Additional history exists Hepatitis B Vaccines Aged Out No long er eligible based on patient's age to complete this topic Pneumococcal vaccine (0-64 years) Aged Out No longer eligible based on patient's age to complete this topic
--- OUTSIDE RECORDS SUMMARY | 2023-07-19 06:37 | XMS_ITS | Clinical Summary ---
Author Name Unknown Organization [employer] [facility] Address [place], [place] [address] Care Team Providers Care Encyclopedia Research Worker Name Role Phone Thuy Ritchie MD Primary Care Provider + Allergies Active Allergy Reactions Criticality Noted Date Comments Hydrocodone-Acetaminophen Hives,Itching 015 Medications Medication Sig Dispensed Refills Start Date End Date Status hydrochlorothiazide 12.5 mg capsule Take 12.5 mg by mouth once daily. Active ibuprofen (ADVIL; MOTRIN) 200 mg tablet Take 200 mg by mouth every 6 hours if needed. Active acetaminophen (TYLENOL) 500 mg capsule Take 500 mg by mouth every 6 hours if needed (500-1000 prn pain). Max acetaminophen dose: 4000mg in 24 hrs. Active EPINEPHRINE (EPIPEN 2-FANTA INJ) by Injection route. Activ e SUMAtriptan (IMITREX) 25 mg tablet Take 25 mg by mouth every 2 hours if needed for Migraine. Max dose: 200mg per 24 hrs. 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 Encounters Date Type Department Care Team Description 05/17/2023 Lab Requisition [facility] [phone] Antonina Louie NP from Last 3 Months Social History Tobacco Use Types Packs/Day Years Used Date Smoking Tobacco: Never Assessed Sex and Gender Information Value Date Recorded Sex Assigned at Not on file Gender Identity Not on file Sexual Orientation Not on file Obstetrics History Last Filed Vital Signs Vital Sign Reading Time Taken Comments Blood Pressure 136/96 06/09/2015 7:13 AM CDT Pulse 82 06/09/2015 7:13 AM CDT Temperature 36.6 ??C (97.8 ??F) 06/09/2015 7:13 AM CD T Respiratory Rate 16 06/09/2015 7:13 AM CDT Oxygen Saturation 94% 08/31/2014 12:45 PM CDT Inhaled Oxygen Concentration - - Weight 104.3 kg (230 lb) 01/06/2015 6:53 AM 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 Height 165.1 cm (5' 5) 01/06/2015 6:53 AM 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 Body Mass Index 38.27 01/06/2015 6:53 AM 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 Plan of Treatment Health Maintenance Due Date Last Done Comments Tdap 1974 Depression screening for age 12+ 1975 HIV for age 15-65 1978 BMI (ht and wt on same day) for age 18+ 1981 Hepatitis C screening for age 18-79 1981 Tetanus booster 1983 Colonoscopy through age 75 2008 Lipids for age 45-75 2008 Mammogram for age 45-75 07/03/2008 07/04/2007 Zoster (shingles) series for age 50+ (1 of 2) 2013 COVID-19 vaccine series ( - 2022- season) 2022 Influenza for age 50-64 11/04/2023 Pap test for age 21-65 05/16/2026 , 05/17/2023, 06/06/2017, Additional history exists Pneumococcal series for age 6-64 Aged Out No longer eligible based on patient's age to complete this topic Medical Devices Implanted Type Area Private Wealth Advisor Device Identifier Shelf Expiration Date Model / Serial / Lot [id number] 5breast 700cc Memorygel Rnd High Smooth Silcn [[id number]] Implanted:Qty: 1 on 08/31/2014 at [facility] Left: Breast [employer] 08/01/2018 [id number] # / [id number] 2breast 700cc Memorygel Rnd High Smooth Silcn [[id number]] Implanted:Qty: 1 on 08/31/2014 at [facility] Right: Breast [employer] 11/02/2018 [id number] # / [id number] / [id number] Procedures Procedure Name Priority Date/Time Associated Diagnosis Comments LAB TRACKING EVENT Routine 05/17/2023 11 :02 AM CDT STRAIGHT PIN MAKING MACHINE OPERATOR THIN PREP PAP SCREEN IMAGED Routine 05/17/2023 11:02 AM CDT HPV THIN PREP Routine 05/17/2023 11:02 AM CDT SCAN-MAMMOGRAPHY REPORT 07/04/2007 12:00 AM CDT from Last 3 Months or Most Recently Relevant to Health Maintenance Results * LAB TRACKING EVENT (05/17/2023 11:02 AM CDT) Other (Other) Client Collect / Unknown 05/17/2023 11:02 AM CDT 05/17/2023 3:24 PM CDT Antonina Johnson NP LAB BILL ONLY [facility] [address] * STRAIGHT PIN MAKING MACHINE OPERATOR THIN PREP PAP SCREEN IMAGED (05/17/2023 11:02 AM CDT) Case Report Gynecologic Cytology Report ? Case: [id number] ? Authorizing Provider: ??Antonina Louie NP ?? Collected: ? 05/17/2023 1102 ? Ordering Location: ? [facility] ?Received: ?05/17/2023 1754 ? First Screen: ?Jimmy Nelson ? Specimen: ?STRAIGHT PIN MAKING MACHINE OPERATOR ThinPrep Vial Screening, Cervical/Vaginal ? 05/25/2023 1:21 PM CDT [facility] INTERPRETATION/ RESULT NEGATIVE FOR INTRAEPITHELIAL LESION OR MALIGNANCY (NIL) (none) 05/25/2023 1:21 PM CDT [facility] IMEN ADEQUACY Satisfactory for evaluation Endocervical cells cannot be evaluated due to severe atrophy 05/25/2023 1:21 PM CDT [facility] HPV REQUEST HPV and PAP 05/25/2023 1:21 PM CDT [facility] Last Pap Date 06/06/2017 05/25/2023 1:21 PM CDT [facility] Last Pap Result NIL 1:21 PM CDT [facility] Menstrual Status Postmenopausal 05/25/2023 1:21 PM CDT [facility] [place] Bx Done Today No 05/25/2023 1:21 PM CDT [facility] Additional Information 05/25/2023 1:21 PM CDT [facility] Comment: Interpreted at [facility] Central Laboratory - [address], [place] [address] Automated Review Successful 05/25/2023 1:21 PM CDT [facility] Comment:Specimen processed s uccessfully by automated scrum product owner device, ThinPrep Imaging System, [employer] ANCILLARY TESTING STRAIGHT PIN MAKING MACHINE OPERATOR HPV Ordered, Please see separate report 05/25/2023 1:21 PM CDT [facility] Note The pap test is a screening technique, not a diagnostic procedure. It is used primarily to screen for squamous cancers and precursor lesions. Published studies have shown that it is subject to both false negative and false positive results. The pap test should not be used as the sole means to diagnose or exclude pre-malignant and malignant lesions. 05/25/2023 1:21 PM CDT [facility] Other (Cervical/Vagina l) 05/17/2023 11:02 AM CDT 05/17/2023 5:54 PM CDT Antonina Johnson NP PATHOLOGY/CYTOLOG Y Performing Organization Address [facility] Co de Phone Number [facility] [address] [place] [address], * HPV HIGH RISK (05/17/2023 11:02 AM CDT) TYPE 16 Negative Negative 05/21/2023 3:16 PM CDT [facility] TYPE 18 Negative Negative 05/21/2023 3:16 PM CDT [facility] OTHER HIGH RISK TYPES Negative Negative 05/21/2023 3:16 PM CDT [facility] Other (Cervical/Vagina l) 05/17/2023 11:02 AM CDT 05/17/2023 5:54 PM CDT Narrative [facility] - 05/21/2023 3:16 PM CDT HPV types 16, 18, 31, 33, 35, 39, 45, 51, 52, 56, 58, 59, 66 and 68 DNA were undetectable or below the pre-set threshold. Methodology: Abdon Vik 4800 HPV Test Antonina Johnson NP MICROBIOLOGY Performing Organization Address [facility] Co de Phone Number [facility] [address] [place] [address], [place] * SCAN-MAMMOGRAPHY REPORT (07/04/2007 12:00 AM CDT) Anatomical Region Laterality Modality Other Narrative Procedure Note Scanner - 07/04/2007 12:00 AM CDT Scanner OTHER from Last 3 Months or Most Recently Relevant to Health Maintenance Advance Directives * Full Code (Latest Code Status on File) Date Activated Date Inactivated Comments 06/09/2015 7:43 AM 06/09/2015 10:20 AM * Full Code Date Activated Date Inactivated Comments 01/06/2015 7:15 AM 01/06/2015 10:12 AM * Full Code Date Activated Date Inactivated Comments 08/31/2014 10:21 AM 08/31/2014 3:53 PM * Full Code Date Activated Date Inactivated Comments 08/31/2014 8:02 AM 08/31/2014 10:21 AM Care Teams Encyclopedia Research Worker Relationship Specialty Start Date End Date Thuy Ritchie MD [address] [place] [address] PCP - General Family Practice 06/04/15
--- OUTSIDE RECORDS SUMMARY | 2023-07-19 06:37 | XMS_ITS ---
Author Name Unknown Organization [facility] Address [address] [place] [address] Care Team Providers Care Laser Set Up Operator Name Role Phone Unavailable Unavailable Unavailable Surgery Details Not on file Complications Check Surgery Details section. Procedure Estimated Blood Loss Check Surgery Details section. Procedure Findings Check Surgery Details section. Procedure Specimens Taken Check Surgery Details section.
--- OUTSIDE RECORDS SUMMARY | 2023-07-19 06:37 | XMS_ITS | Referral Summary ---
Author Name Unknown Organization [facility] Address [address] [place] [address] Care Team Providers Care Machine Fancy Stitcher Name Role Phone Unavailable Primary Care Provider Unavailabl e Source Comments Patient records contain information from all sites at [facility]. For routine questions regarding patient records, call [phone] during business hours, M-F 8:00 AM - 5:00 PM Central Time. Record requests for emergency care only can be directed to [phone] at any time.[facility] Allergies Active Allergy Reactions Criticality Noted Date [...] 12.5 mg by mouth daily. 06/10/2021 Active Social History Tobacco Use Types Packs/Day Years [...] 05/30/2021 How often do you attend chur or mosque services? More than 4 times per year 05/30/2021 Do you belong to any clubs o r organizations such as lutheran groups, unions, fraternal [...] and heating? Not hard at all 05/30/2021 [facility] - Occupational Stress [...] or slept in a mcc (including now)? No 05/30/2021 Nutrition Answer Date [...] CDT Office Visit Department of Dermatology in [address] [phone] Estelita Szymanski M.D. [address] [place] [address]
--- NOTE | 2023-07-19 07:55 | W.ANESCHARGE ---
Anesthesia Charges Start Date/Time Anesthesia Start Date: 07/19/23 Anesthesia Start Time: 07:13 Stop Date/Time Anesthesia Stop Date: 07/19/23 Anesthesia Stop Time: 07:49
--- NOTE | 2023-07-19 10:06 | W.ANESCHARGE ---
Anesthesia Charges Start Date/Time Anesthesia Start Date: 07/19/23 Anesthesia Start Time: 07:13 Stop Date/Time Anesthesia Stop Date: 07/19/23 Anesthesia Stop Time: 07:49
== END 2023-07-19 06:35 | disposition home or self-care (01) ==
LOC: OP CLINIC 06:34
PROVIDERS: PCP Nurse Practitioner Family; Visit Provider Surgery
DX: Z12.11 Encounter for screening for malignant neoplasm of colon (principal); K63.5 Polyp of colon; K57.30 Diverticulosis of large intestine without perforation or abscess without bleeding
CPT/HCPCS: 00811; 45385; 88305; J2704

== ENCOUNTER 2024-07-30 10:34 | Outpatient (CLI) | payer BC, SELFPAY | END 2024-07-30 10:35 | disposition home or self-care (01) | LOC: NFLDREF 08-01 15:15 | PROVIDERS: PCP Nurse Practitioner Family; Referring Provider Nurse Practitioner Family; Visit Provider Nurse Practitioner Family | DX: Z00.00 Encounter for general adult medical examination without abnormal findings (principal); I10 Essential (primary) hypertension; R73.03 Prediabetes | CPT/HCPCS: 80053; 80061 ==